=== PATIENT | male | born 1970 | race Two or more races ===

== ENCOUNTER 2017-10-09 18:17 | Inpatient (IN) | payer OTHER ==
[2017-10-09 19:17] VITALS: BMI 26.5
--- NOTE | 2017-10-09 20:38 | HP ---
COWS - Scale Resting Pulse: 1= NE 81-100 Sweatin=Flushed/Facial Moisture Restless Observation: 5= Unable to Sit Still Pupil Size: 1= Pupils >than Normal Bone or Joint Aches: 4=Acute Joint/Muscle Pain Runny Nose/ Eye Tearin= Runny Nose/Eyes GI Upset > 30mins: 2= Nausea/Diarrhea Tremor Observation: 2= Slight Tremor Visible Yawning Observation: 0= None Anxiety or Irritability: 2=Irritable/Anxious Goose Flesh Skin: 0=Smooth Skin COWS Score: 21 CIWA Score - CIWA Score Nausea/Vomitin Muscle Tremors: 4-Moderate,w/Arms Extend Anxiety: 4-Mod. Anxious/Guarded Agitation: 4-Moderately Restless Paroxysmal Sweats: 3 Orientation: 0-Oriented Tacttile Disturbances: 0-None Auditory Disturbances: 1-Very Mild Visual Disturbances: 1-Very Mild Sensitivity Headache: 0-None Present CIWA-Ar Total Score: 20 Admission ROS S - HPI Chief Complaint: C/O WITHDRAWAL SX'S. SEEKING DETOX TXMENT FOR BENZO AND OPIOID DEP Allergies/Adverse Reactions: Allergies Allergy/AdvReac Type Severity Reaction Status Date / Time No Known Allergies Allergy Verified 10/09/17 20:32 History of Present Illness: 47 Y.O. MALE WITH LONG HX/O OPIOID AND ALCOHOL DEPENDENCE HERE FOR DETOX TXMENT. SELF REFERRED. LONGEST CLEAN TIME 5 YEARS RELAPSING 4 YEARS AGO. DENIES ANY LEGALS. STATES LAST DETOX OVER A YEAR AGO. Exam Limitations: No Limitations - Ebola screening Have you traveled outside of the country in the last 21 days: No Have you had contact with anyone from an Ebola affected area: No Have you been sick,other than usual withdrawal symptoms: No Do you have a fever: No - Review of Systems Constitutional: Chills, Loss of Appetite, Malaise, Night Sweats, Changes in sleep EENT: reports: Nose Congestion, Dental Problems ([place]) Respiratory: reports: No Symptoms reported Cardiac: reports: No Symptoms Reported GI: reports: Diarrhea, Nausea, Poor Appetite, Abdominal cramping : reports: No Symptoms Reported Musculoskeletal: reports: Back Pain, Joint Pain, Muscle Pain Integumentary: reports: No Symptoms Reported Neuro: reports: Seizure (R/T DRUGS AND ALCOHOL), Tremors (R/T ALCOHOL WITHDRAWAL ) Endocrine: reports: No Symptoms Reported Hematology: reports: No Symptoms Reported Psychiatric: reports: Anxious, Depressed Other Systems: Reviewed and Negative Patient History - Patient Medical History Hx Anemia: No Hx Asthma: No Hx Chronic Obstructive Pulmonary Disease (COPD): No Hx Cancer: No Hx Cardiac Disorders: No Hx Congestive Heart Failure: No Hx Hypertension: No Hx Hypercholesterolemia: No Hx Pacemaker: No HX Cerebrovascular Accident: No Hx Seizures: Yes (R/T DRUGS AND ALCOHOL. LAST ONE AGE 19) Hx Dementia: No Hx Diabetes: No Hx Gastrointestinal Disorders: No Hx Liver Disease: No Hx Genitourinary Disorders: No Hx Sexually Transmitted Disorders: No Hx Renal Disease (ESRD): No Hx Thyroid Disease: No Hx Human Immunodeficiency Virus (HIV): No Hx Hepatitis C: No Hx Depression: Yes Hx Suicide Attempt: No Hx Bipolar Disorder: No Hx Schizophrenia: No Other Medical History: INSOMNIA, ANXIETY - Patient Surgical History Past Surgical History: No - PPD History Previous Implant?: Yes Documented Results: Negative w/o proof Implanted On Prior [facility] Admission?: No PPD to be Administered?: Yes - Smoking Cessation Smoking history: Current every day smoker Have you smoked in the past 12 months: Yes Aproximately how many cigarettes per day: 10 Cigars Per Day: 0 Hx Chewing Tobacco Use: No Initiated information on smoking cessation: Yes 'Breaking Loose' booklet given: 10/09/17 - Substance & Tx. History Hx Alcohol Use: Yes Hx Substance Use: Yes Substance Use Type: Alcohol, Heroin, Tranquilizers (XANAX) Hx Substance Use Treatment: Yes ([facility]) - Substances Abused HEROIN Route: Injection Frequency: Daily Amount used: 6 BAGS Age of first use: 19 Date of Last Use: 10/09/17 XANAX Route: Oral Frequency: Daily Amount used: 6MG Age of first use: 27 Date of Last Use: 10/09/17 YISEL/BEER Route: Oral Frequency: Daily Amount used: FIFTH/ 2- 6 PACKS Age of first use: 13 Date of Last Use: 10/09/17 Family Disease History - Family Disease History Family History: Denies Admission Physical Exam [facility] - Vital Signs Vital Signs: Vital Signs - 24 hr 10/09/17 19:14 Temperature 98.0 F Pulse Rate 85 Respiratory 18 Rate Blood Pressure 117/77 - Physical General Appearance: Yes: Appropriately Dressed, Mild Distress, Alcohol on Breath , Tremorous, Anxious HEENTM: Yes: EOMI, Pharynx Normal, Nasal Congestion Respiratory: Yes: Chest Non-Tender, Lungs Clear, Normal Breath Sounds, No Respiratory Distress, No Accessory Muscle Use Neck: Yes: No masses,lesions,Nodules, Supple, Trachea in good position Breast: Yes: Breast Exam Deferred Cardiology: Yes: Regular Rhythm, Regular Rate, S1, S2 Abdominal: Yes: Normal Bowel Sounds, Non Tender, Soft Genitourinary: Yes: Within Normal Limits Back: Yes: Normal Inspection Musculoskeletal: Yes: full range of Motion, Gait Steady Extremities: Yes: Normal Capillary Refill, Normal Range of Motion, Non-Tender, Tremors 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, Fully Oriented, Alert, Motor Strength 5/5 Integumentary: Yes: Warm, Track Jerez, Other (FLUSHED TRACK JEREZ TO BOTH ARMS) Lymphatic: Yes: Within Normal Limits - Diagnostic (1) Alcohol dependence with uncomplicated withdrawal Current Visit: Yes Status: Chronic (2) Opioid dependence with withdrawal Current Visit: Yes Status: Chronic (3) Sedative, hypnotic or anxiolytic dependence with withdrawal, unspecified Current Visit: Yes Status: Chronic (4) Nicotine dependence Current Visit: Yes Status: Chronic Qualifiers: Nicotine product type: cigarettes Substance use status: uncomplicated Qualified Code(s): F17.210 - Nicotine dependence, cigarettes, uncomplicated (5) Alcohol related seizure Current Visit: Yes Status: Chronic Cleared for Admission [facility] - Detox or Rehab [facility] Level of Care: Medically Managed Detox Regimen/Protocol: Methadone/Valium S Breath Alcohol Content Breath Alcohol Content: 0 Urine Drug Screen - Results Drug Screen Negative: No Urine Drug Screen Results: OPI-Opiates, BZO-Benzodiazepines, OXY-Oxycodone
[2017-10-09] MEDS ORDERED: MAG HYDROX/AL HYDROX/SIMETH 30 ML UNIT-DOSE CUP PO PRN (20:49)
[2017-10-09] MEDS ORDERED: diazePAM 5 MG TABLET PO ONE (20:49)
[2017-10-09] MEDS ORDERED: ACETAMINOPHEN 325 MG TABLET (FP) PO PRN (20:49)
[2017-10-09] MEDS ORDERED: LOPERAMIDE HCL 2 MG CAPSULE PO PRN (20:49)
[2017-10-09] MEDS ORDERED: diazePAM 5 MG TABLET PO PRN (20:49)
[2017-10-09] MEDS ORDERED: P-EPHED 60MG/TRIPROLIDI 2.5MG TABLET PO PRN (20:49)
[2017-10-09] MEDS ORDERED: MENTHOL/PHENOL 1 EACH UD MM PRN (20:49)
[2017-10-09] MEDS ORDERED: IBUPROFEN 400 MG TABLET (FP) PO PRN (20:49)
[2017-10-09] MEDS ORDERED: NICOTINE POLACRILEX 2 MG GUM BC PRN (20:49)
[2017-10-09] MEDS ORDERED: guaiFENesin/D-METHORPHAN HB 10 ML UNIT-DOSE CUPS PO PRN (20:49)
[2017-10-09] MEDS ORDERED: MAGNESIUM HYDROX 2400MG/30ML ORAL SUSPENSION 30 ML CUP PO PRN (20:49)
[2017-10-09] MEDS ORDERED: MAGNESIUM CITRATE 300 ML BOTTLE PO PRN (20:49)
[2017-10-09] MEDS ORDERED: METHADONE HCL 10 MG TABLET (FOR DETOX USE ONLY) PO ONE ×2 (20:49→23:00)
[2017-10-09] MEDS ORDERED: diazePAM 5 MG TABLET PO SCH (22:00)
[2017-10-10] MEDS ORDERED: METHADONE HCL 10 MG TABLET (FOR DETOX USE ONLY) PO ONE ×3 (00:44→23:00)
[2017-10-10] MEDS ORDERED: diazePAM 5 MG TABLET PO ONE (00:44)
[2017-10-10] MEDS: THIAMINE HCL 100 MG TABLET (FP) PO SCH ×2 (01:18→22:18)
[2017-10-10] MEDS: diazePAM 5 MG TABLET PO SCH ×3 (05:58→22:19)
[2017-10-10] MEDS ORDERED: METHADONE HCL 10 MG TABLET (FOR DETOX USE ONLY) PO SCH (10:00)
--- NOTE | 2017-10-10 10:03 | CONSULT ---
[facility] Psychiatric Consult - Data Date of interview: 10/10/17 Admission source: [facility] Identifying data: Pt. is a 47 year old male, single and unemployed with 3 children. This is patient's first admission to [facility]. Pt. admitted to detox for heroin, cocaine and alcohol dependence. Substance Abuse History: Cocaine- begun using at 19 years of age. Amount used- $ 20 dollars/month. Alcohol- Started drinking alcohol at 9-10 years of age. Usage - 6 pack of heineken and 1/5 donna daily. Cigaretes- half pack per day since 17 years of age. Marijuaua- Beung using marijuana at 16 year of age. Usage: couple of bags daily. Medical History: Pt. denies. As per chart patient had a seizure at 19 years of age. (seizure r/t drugs and alcohol). Psychiatric History: Pt. reports a history of depression. Reports multiple psychiatric hospitalizations from 1996- 2014, all for depression. Pt. unable to state which hospital/hospitals he was admitted too. Pt. reports taking trazodone and celexa since 2010 but has not taken any psychotrophic medications in approximately one year. Pt. denies h/o suicide attempts. Physical/Sexual Abuse/Trauma History: Pt. denies. Mental Status Exam - Mental Status Exam Alert and Oriented to: Time, Place, Person Cognitive Function: Fair Patient Appearance: Well Groomed Mood: Euthymic Affect: Appropriate, Mood Congruent Patient Behavior: Appropriate, Cooperative Speech Pattern: Clear, Appropriate Voice Loudness: Normal Thought Process: Goal Oriented Thought Disorder: Not Present Hallucinations: Denies Suicidal Ideation: Denies Homicidal Ideation: Denies Insight/Judgement: Fair Sleep: Poorly (Will restart patient on trazodone 50mg qhs) Appetite: Fair Muscle strength/Tone: Normal Gait/Station: Normal Psychiatric Findings - Problem List ([place] 1, 2,3) (1) Substance induced mood disorder Current Visit: Yes Status: Acute (2) Alcohol dependence with uncomplicated withdrawal Current Visit: Yes Status: Chronic (3) Nicotine dependence Current Visit: Yes Status: Chronic Qualifiers: Nicotine product type: cigarettes Substance use status: uncomplicated Qualified Code(s): F17.210 - Nicotine dependence, cigarettes, uncomplicated (4) Opioid dependence with withdrawal Current Visit: Yes Status: Chronic (5) Sedative, hypnotic or anxiolytic dependence with withdrawal, unspecified Current Visit: Yes Status: Chronic - Initial Treatment Plan Initial Treatment Plan: Psychoeducation provided. Detoxifiation in progress. Trazodone 50mg qhs ordered for insomnia. Benefits/side effects discusess with patient. Verbal consent given. Pt. agreeable with plan. Will continue to monitor patient.
[2017-10-10 10:12] LABS: MCH 31.8 pg (25.7-33.7); MCHC 33.6 g/dl (32.0-35.9); MEAN CELL VOLUME 94.8 fl (80-96); MEAN PLT VOLUME 9.9 fl (7.5-11.1); PLATELET COUNT 171 K/MM3 (134-434); RDW 12.9 % (11.9-15.9); WHITE BLOOD COUNT 6.2 K/mm3 (4.0-10.0)
[2017-10-10 10:20] LABS: ALBUMIN 3.3 g/dl (3.4-5.0); ALK PHOS 77 U/L (45-117); ANION GAP 7 (8-16); BILIRUBIN,TOTAL 0.3 mg/dL (0.2-1.0); CALCIUM 8.8 mg/dL (8.5-10.1); CO2 28 mmol/L (21-32); CREATININE 0.8 mg/dL (0.7-1.3); GLUCOSE,RANDOM 80 mg/dL (74-106); SGOT/AST 22 U/L (15-37); SGPT/ALT 40 U/L (12-78); TOT PROT 6.3 g/dl (6.4-8.2)
[2017-10-10] MEDS: PRENATAL VITAMINS W/ FOLIC ACID TABLET (FP) PO SCH (10:32)
[2017-10-10] MEDS: NICOTINE 14 MG/24 HOURS TOPICAL PATCH TD SCH (10:33)
[2017-10-10] MEDS: diazePAM 5 MG TABLET PO PRN ×2 (10:34→17:22)
[2017-10-10 11:10] LABS: HIV 1 & 2 AB NEGATIVE; HIV 1 AGp24 NEGATIVE
--- NOTE | 2017-10-10 11:43 | EKG ---
Test Reason : Blood Pressure : / mmHG Vent. Rate : 065 BPM Atrial Rate : 065 BPM P-R Int : 112 ms QRS Dur : 092 ms QT Int : 404 ms P-R-T Axes : 045 065 051 degrees QTc Int : 420 ms NORMAL SINUS RHYTHM NORMAL ECG NO PREVIOUS ECGS AVAILABLE Confirmed by BRENNA HERRERA MD ([id number]) on 10/10/2017 11:42:59 AM Referred By: Confirmed By:BRENNA HERRERA MD
--- NOTE | 2017-10-10 19:19 | PN ---
[facility] CIWA - CIWA Score Nausea/Vomitin-No Nausea/No Vomiting Muscle Tremors: 3 Anxiety: 4-Mod. Anxious/Guarded Agitation: 3 Paroxysmal Sweats: 3 Orientation: 0-Oriented Tacttile Disturbances: 2-Mild Itch/Numbness/Burn Auditory Disturbances: 2-Mild Harshness/Frighten Visual Disturbances: 0-None Headache: 0-None Present CIWA-Ar Total Score: 17 S COWS - Scale Resting Pulse: 0= MS 80 or Below Sweatin= Chills/Flushing Restless Observation: 1= Difficult to Sit Still Pupil Size: 0= Normal to Room Light Bone or Joint Aches: 2= Severe Diffuse Aches Runny Nose/ Eye Tearin= Nasal Congestion GI Upset > 30mins: 0= None Tremor Observation of Outstretched Hands: 0= None Yawning Observation: 2= >3x During Session Anxiety or Irritability: 2=Irritable/Anxious Goose Flesh Skin: 3=Piloerection COWS Score: 12 S Progress Note (SOAP) Subjective: Sweating, Anxious, Interrupted Sleep, Tremors, Fatigue. Objective: PT. A & O X 3, OBSERVED AMBULATING ON UNIT. NO ACUTE DISTRESS. 10/10/17 19:16 Vital Signs Temperature 97.5 F L 10/10/17 17:55 Pulse Rate 70 10/10/17 17:55 Respiratory Rate 18 10/10/17 17:55 Blood Pressure 101/71 10/10/17 17:55 O2 Sat by Pulse Oximetry (%) Laboratory Tests 10/10/17 10/10/17 10/10/17 07:00 07:00 07:00 WBC 6.2 RBC 4.62 Hgb 14.7 Hct 43.8 MCV 94.8 MCH 31.8 MCHC 33.6 RDW 12.9 Plt Count 171 MPV 9.9 Sodium 141 Potassium 3.5 Chloride 106 Carbon Dioxide 28 Anion Gap 7 L BUN 14 Creatinine 0.8 Creat Clearance w eGFR > 60 Random Glucose 80 Calcium 8.8 Total Bilirubin 0.3 AST 22 ALT 40 Alkaline Phosphatase 77 Total Protein 6.3 L Albumin 3.3 L RPR Titer Nonreactive HIV 1&2 Antibody Screen HIV P24 Antigen 10/10/17 09:00 WBC RBC Hgb Hct MCV MCH MCHC RDW Plt Count MPV Sodium Potassium Chloride Carbon Dioxide Anion Gap BUN Creatinine Creat Clearance w eGFR Random Glucose Calcium Total Bilirubin AST ALT Alkaline Phosphatase Total Protein Albumin RPR Titer HIV 1&2 Antibody Screen Negative HIV P24 Antigen Negative LABS NOTED. HCV AB AND UA RESULTS PENDING. 10/10/17 19:17 Assessment: 10/10/17 19:17 WITHDRAWAL SYMPTOMS. Plan: CONTINUE DETOX. AT PATIENT'S REQUEST, METHADONE DETOX REGIMEN MODIFIED SO THAT MODIFIED SO THAT PATIENT MAY BE DISCHARGED ON 10/14/2017.
[2017-10-10] MEDS: traZODone HCL 50 MG TABLET (FP) PO SCH (22:18)
[2017-10-11] MEDS: diazePAM 5 MG TABLET PO SCH ×3 (05:27→22:32)
[2017-10-11] MEDS ORDERED: METHADONE HCL 5 MG TABLET (FOR DETOX USE ONLY) PO SCH (10:00)
[2017-10-11] MEDS ORDERED: diazePAM 5 MG TABLET PO SCH (10:00)
[2017-10-11] MEDS ORDERED: METHADONE HCL 10 MG TABLET (FOR DETOX USE ONLY) PO SCH (10:00)
[2017-10-11] MEDS: PRENATAL VITAMINS W/ FOLIC ACID TABLET (FP) PO SCH (10:45)
[2017-10-11] MEDS: diazePAM 5 MG TABLET PO PRN ×2 (10:46→17:37)
[2017-10-11] MEDS: NICOTINE 14 MG/24 HOURS TOPICAL PATCH TD SCH (10:46)
--- NOTE | 2017-10-11 15:54 | PN ---
[facility] CIWA - CIWA Score Nausea/Vomitin-No Nausea/No Vomiting Muscle Tremors: 3 Anxiety: 3 Agitation: 3 Paroxysmal Sweats: 3 Orientation: 0-Oriented Tacttile Disturbances: 2-Mild Itch/Numbness/Burn Auditory Disturbances: 0-None Visual Disturbances: 2-Mild Sensitivity Headache: 0-None Present CIWA-Ar Total Score: 16 [facility]HS COWS - Scale Resting Pulse: 0= MD 80 or Below Sweatin= Chills/Flushing Restless Observation: 1= Difficult to Sit Still Pupil Size: 0= Normal to Room Light Bone or Joint Aches: 2= Severe Diffuse Aches Runny Nose/ Eye Tearin= Nasal Congestion GI Upset > 30mins: 1= Stomach Cramp Tremor Observation of Outstretched Hands: 2= Slight Tremor Visible Yawning Observation: 1= 1-2x During Session Anxiety or Irritability: 2=Irritable/Anxious Goose Flesh Skin: 3=Piloerection COWS Score: 14 S Progress Note (SOAP) Subjective: Sweating, Tremors, Anxious, Body Aches. Objective: PT. A & O X 3, OBSERVED AMBULATING ON UNIT. NO ACUTE DISTRESS. 10/11/17 15:53 Vital Signs Temperature 98 F 10/11/17 13:01 Pulse Rate 78 10/11/17 13:01 Respiratory Rate 18 10/11/17 13:01 Blood Pressure 121/74 10/11/17 13:01 O2 Sat by Pulse Oximetry (%) Laboratory Tests 10/09/17 10/10/17 10/10/17 07:00 07:00 07:00 WBC 6.2 RBC 4.62 Hgb 14.7 Hct 43.8 MCV 94.8 MCH 31.8 MCHC 33.6 RDW 12.9 Plt Count 171 MPV 9.9 Sodium 141 Potassium 3.5 Chloride 106 Carbon Dioxide 28 Anion Gap 7 L BUN 14 Creatinine 0.8 Creat Clearance w eGFR > 60 Random Glucose 80 Calcium 8.8 Total Bilirubin 0.3 AST 22 ALT 40 Alkaline Phosphatase 77 Total Protein 6.3 L Albumin 3.3 L RPR Titer Hepatitis C Antibody >11.0 H HIV 1&2 Antibody Screen HIV P24 Antigen 10/10/17 10/10/17 07:00 09:00 WBC RBC Hgb Hct MCV MCH MCHC RDW Plt Count MPV Sodium Potassium Chloride Carbon Dioxide Anion Gap BUN Creatinine Creat Clearance w eGFR Random Glucose Calcium Total Bilirubin AST ALT Alkaline Phosphatase Total Protein Albumin RPR Titer Nonreactive Hepatitis C Antibody HIV 1&2 Antibody Screen Negative HIV P24 Antigen Negative LABS NOTED. Assessment: 10/11/17 15:54 WITHDRAWAL SYMPTOMS. Plan: CONTINUE DETOX. PRN FLEXERIL FOR BODY ACHES / MUSCLE SPASMS. INCREASE DAILY PO FLUID INTAKE.
[2017-10-11] MEDS: THIAMINE HCL 100 MG TABLET (FP) PO SCH (22:31)
[2017-10-11] MEDS: CYCLOBENZAPRINE HCL 10 MG TABLET (FP) PO PRN (22:32)
[2017-10-11] MEDS: traZODone HCL 50 MG TABLET (FP) PO SCH (22:32)
[2017-10-12] MEDS: diazePAM 5 MG TABLET PO PRN ×2 (07:37→17:27)
[2017-10-12] MEDS: CYCLOBENZAPRINE HCL 10 MG TABLET (FP) PO PRN ×2 (07:37→22:36)
[2017-10-12] MEDS ORDERED: METHADONE HCL 5 MG TABLET (FOR DETOX USE ONLY) PO SCH (10:00)
[2017-10-12] MEDS: PRENATAL VITAMINS W/ FOLIC ACID TABLET (FP) PO SCH (10:37)
[2017-10-12] MEDS: diazePAM 5 MG TABLET PO SCH ×2 (10:37→22:33)
[2017-10-12] MEDS: NICOTINE 14 MG/24 HOURS TOPICAL PATCH TD SCH (10:37)
[2017-10-12] MEDS: HYDROCORTISONE 0.5% TOPICAL OINTMENT TUBE TP SCH ×2 (13:36→22:37)
[2017-10-12] MEDS: BACITRACIN 0.9 GM PACKET TP SCH (13:36)
--- NOTE | 2017-10-12 18:02 | PN ---
S Progress Note (SOAP) Subjective: Sweating, Anxious, Interrupted Sleep. Objective: PT. A & O X 3, OBSERVED AMBULATING ON UNIT. NO ACUTE DISTRESS. 10/12/17 18:00 Vital Signs Temperature 97.3 F L 10/12/17 17:30 Pulse Rate 66 10/12/17 17:30 Respiratory Rate 18 10/12/17 17:30 Blood Pressure 108/58 10/12/17 17:30 O2 Sat by Pulse Oximetry (%) Laboratory Tests 10/09/17 10/10/17 10/10/17 07:00 07:00 07:00 WBC 6.2 RBC 4.62 Hgb 14.7 Hct 43.8 MCV 94.8 MCH 31.8 MCHC 33.6 RDW 12.9 Plt Count 171 MPV 9.9 Sodium 141 Potassium 3.5 Chloride 106 Carbon Dioxide 28 Anion Gap 7 L BUN 14 Creatinine 0.8 Creat Clearance w eGFR > 60 Random Glucose 80 Calcium 8.8 Total Bilirubin 0.3 AST 22 ALT 40 Alkaline Phosphatase 77 Total Protein 6.3 L Albumin 3.3 L RPR Titer Hepatitis C Antibody >11.0 H HIV 1&2 Antibody Screen HIV P24 Antigen 10/10/17 10/10/17 07:00 09:00 WBC RBC Hgb Hct MCV MCH MCHC RDW Plt Count MPV Sodium Potassium Chloride Carbon Dioxide Anion Gap BUN Creatinine Creat Clearance w eGFR Random Glucose Calcium Total Bilirubin AST ALT Alkaline Phosphatase Total Protein Albumin RPR Titer Nonreactive Hepatitis C Antibody HIV 1&2 Antibody Screen Negative HIV P24 Antigen Negative LABS NOTED. Assessment: 10/12/17 18:00 WITHDRAWAL SYMPTOMS. Plan: CONTINUE DETOX. INCREASE DAILY PO FLUID INTAKE. PATIENT REPORTS THAT HE COMPLETED A FULL COURSE OF TREATMENT FOR HEPATITIS C IN 2011.
[2017-10-12] MEDS: THIAMINE HCL 100 MG TABLET (FP) PO SCH (22:33)
[2017-10-12] MEDS: traZODone HCL 50 MG TABLET (FP) PO SCH (22:33)
[2017-10-13] MEDS: CYCLOBENZAPRINE HCL 10 MG TABLET (FP) PO PRN (06:00)
[2017-10-13] MEDS ORDERED: diazePAM 5 MG TABLET PO SCH (10:00)
[2017-10-13] MEDS ORDERED: METHADONE HCL 10 MG TABLET (FOR DETOX USE ONLY) PO SCH ×2 (10:00)
[2017-10-13 10:16] LABS: URINE APPEARANCE CLEAR; URINE BILIRUBIN NEGATIVE (NEGATIVE); URINE BLOOD NEGATIVE (NEGATIVE); URINE COLOR STRAW; URINE GLUCOSE (UA) NEGATIVE (NEGATIVE); URINE KETONE NEGATIVE (NEGATIVE); URINE LEUK ESTERASE NEGATIVE (NEGATIVE); URINE NITRITE NEGATIVE (NEGATIVE); URINE PROTEIN NEGATIVE (NEGATIVE); URINE UROBILINOGEN NEGATIVE mg/dL (0.2-1.0)
[2017-10-13] MEDS: HYDROCORTISONE 0.5% TOPICAL OINTMENT TUBE TP SCH ×2 (10:40→22:42)
[2017-10-13] MEDS: BACITRACIN 0.9 GM PACKET TP SCH (10:40)
[2017-10-13] MEDS: diazePAM 5 MG TABLET PO SCH ×2 (10:40→22:42)
[2017-10-13] MEDS: PRENATAL VITAMINS W/ FOLIC ACID TABLET (FP) PO SCH (10:40)
[2017-10-13] MEDS: NICOTINE 14 MG/24 HOURS TOPICAL PATCH TD SCH (10:40)
[2017-10-13] MEDS ORDERED: hydrOXYzine HCL 25 MG TABLET (FP) PO PRN (11:21)
[2017-10-13 14:06] LABS: URINE LEUK ESTERASE NEGATIVE (NEGATIVE)
--- NOTE | 2017-10-13 17:05 | PN ---
[facility] Progress Note (SOAP) Subjective: Anxious, interrupted sleep Objective: 10/13/17 17:04 Last Vital Signs Temp Pulse Resp BP Pulse Ox 96.5 F L 77 18 107/64 10/13/17 14:30 10/13/17 14:30 10/13/17 14:30 10/13/17 14:30 Laboratory Tests 10/09/17 10/10/17 10/10/17 07:00 07:00 07:00 WBC 6.2 RBC 4.62 Hgb 14.7 Hct 43.8 MCV 94.8 MCH 31.8 MCHC 33.6 RDW 12.9 Plt Count 171 MPV 9.9 Sodium 141 Potassium 3.5 Chloride 106 Carbon Dioxide 28 Anion Gap 7 L BUN 14 Creatinine 0.8 Creat Clearance w eGFR > 60 Random Glucose 80 Calcium 8.8 Total Bilirubin 0.3 AST 22 ALT 40 Alkaline Phosphatase 77 Total Protein 6.3 L Albumin 3.3 L Urine Color Urine Appearance Urine pH Ur Specific [place] Urine Protein Urine Glucose (UA) Urine Ketones Urine Blood Urine Nitrite Urine Bilirubin Urine Urobilinogen Ur Leukocyte Esterase RPR Titer Hepatitis C Antibody >11.0 H HIV 1&2 Antibody Screen HIV P24 Antigen 10/10/17 10/10/17 10/13/17 07:00 09:00 08:00 WBC RBC Hgb Hct MCV MCH MCHC RDW Plt Count MPV Sodium Potassium Chloride Carbon Dioxide Anion Gap BUN Creatinine Creat Clearance w eGFR Random Glucose Calcium Total Bilirubin AST ALT Alkaline Phosphatase Total Protein Albumin Urine Color Straw Urine Appearance Clear Urine pH 7.0 Ur Specific [place] 1.010 Urine Protein Negative Urine Glucose (UA) Negative Urine Ketones Negative Urine Blood Negative Urine Nitrite Negative Urine Bilirubin Negative Urine Urobilinogen Negative Ur Leukocyte Esterase Negative RPR Titer Nonreactive Hepatitis C Antibody HIV 1&2 Antibody Screen Negative HIV P24 Antigen Negative Labs noted Assessment: 10/13/17 17:05 Withdrawal symptoms Plan: Continue detox
[2017-10-13] MEDS: THIAMINE HCL 100 MG TABLET (FP) PO SCH (22:42)
[2017-10-13] MEDS: traZODone HCL 50 MG TABLET (FP) PO SCH (22:43)
[2017-10-14] MEDS: CYCLOBENZAPRINE HCL 10 MG TABLET (FP) PO PRN (05:57)
[2017-10-14] MEDS ORDERED: METHADONE HCL 5 MG TABLET (FOR DETOX USE ONLY) PO SCH ×2 (06:00)
[2017-10-14 09:39] VITALS: BP 103/69; PULSE 76; TEMP 97.3
[2017-10-14] MEDS ORDERED: diazePAM 5 MG TABLET PO SCH (10:00)
[2017-10-14] MEDS ORDERED: METHADONE HCL 10 MG TABLET (FOR DETOX USE ONLY) PO SCH (10:00)
[2017-10-15] MEDS ORDERED: METHADONE HCL 5 MG TABLET (FOR DETOX USE ONLY) PO SCH (06:00)
== END 2017-10-14 11:15 | disposition home or self-care (01) | DRG 773 ==
LOC: YASAS 18:17 → Y3N 22:43
PROVIDERS: ADMIT Internal Medicine; ATTEND Internal Medicine
PROC: HZ2ZZZZ Detoxification Services for Substance Abuse Treatment (ICD-10-PCS; principal; 2017-10-09)
DX: F11.23 Opioid dependence with withdrawal (principal); F13.230 Sedative, hypnotic or anxiolytic dependence with withdrawal, uncomplicated; F10.230 Alcohol dependence with withdrawal, uncomplicated; F17.210 Nicotine dependence, cigarettes, uncomplicated; F19.24 Other psychoactive substance dependence with psychoactive substance-induced mood disorder; F32.9 Major depressive disorder, single episode, unspecified; G47.00 Insomnia, unspecified; G40.509 Epileptic seizures related to external causes, not intractable, without status epilepticus
CPT/HCPCS: 36415; 80053; 81003; 85027; 86593; 86803; 87389; 87522; 93005; 93010

== ENCOUNTER 2018-06-27 15:39 | Inpatient (IN) | payer OTHER ==
[2018-06-27 16:55] VITALS: BMI 25.1
--- NOTE | 2018-06-27 17:59 | HP ---
COWS - Scale Resting Pulse: 0= [place] 80 or Below Sweatin=Flushed/Facial Moisture Restless Observation: 0= Sits Still Pupil Size: 2= Moderately Dilated Bone or Joint Aches: 2= Severe Diffuse Aches Runny Nose/ Eye Tearin= Runny Nose/Eyes GI Upset > 30mins: 2= Nausea/Diarrhea Tremor Observation: 2= Slight Tremor Visible Yawning Observation: 1= 1-2x During Session Anxiety or Irritability: 1=Feels Anxious/Irritable Goose Flesh Skin: 0=Smooth Skin COWS Score: 14 CIWA Score - CIWA Score Nausea/Vomitin Muscle Tremors: 2 Anxiety: 2 Agitation: 0-Normal Activity Paroxysmal Sweats: 2 Orientation: 1-Uncertain about Date Tacttile Disturbances: 1-Very Mild Itch/Numbness Auditory Disturbances: 0-None Visual Disturbances: 0-None Headache: 2-Mild CIWA-Ar Total Score: 12 Admission [facility] Chief Complaint: Patient presents with ETOH/Heroin/Xanax withdrawal symptoms and cocaine dependence. Allergies/Adverse Reactions: Allergies Allergy/AdvReac Type Severity Reaction Status Date / Time No Known Allergies Allergy Verified 06/27/18 17:16 History of Present Illness: Patient is a 47 year old male with Heroin/ETOH/Xanax withdrawal symptoms and cocaine and marijuana dependence. Pateint started injecting heroin/Xanax/Cocaine /Marijuana at age 19 and ETOH and age 15. Patient injects up to 15 bags of heroin daily and drinks up to 2 pints of liquor daily with 2 40 ounce beers. Patient also buys non-prescribed xanax and takes up to 4-6 mg daily. Patient injected heroin and took xanax this morning. Last time he took cocaine and marijuana was 2 days ago. Last ETOH use was last night. Patient denies hx of seizures. +overdose approximately 1 year ago. Patient has PMH of depression. Denies SI/HI and suicide attempts. 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 Last time he received prescription was 06/04/18- reference number [id number] Dr. Blake- 8 #90 films. Exam Limitations: No Limitations - Ebola screening Have you traveled outside of the country in the last 21 days: No (N) Have you had contact with anyone from an Ebola affected area: No Have you been sick,other than usual withdrawal symptoms: No Do you have a fever: No - Review of Systems Constitutional: Chills, Night Sweats, Changes in sleep, Unintentional Wgt. Loss EENT: reports: Tearing, Nose Congestion. denies: Blurred Vision, Recent change in vision Respiratory: reports: No Symptoms reported. denies: Cough, Wheezing Cardiac: reports: No Symptoms Reported. denies: Chest Pain, Palpitations GI: reports: Diarrhea, Nausea, Poor Appetite, Poor Fluid Intake, Abdominal cramping. denies: Vomiting : reports: No Symptoms Reported. denies: Burning, Dysuria, Pain Musculoskeletal: reports: Back Pain, Joint Pain, Muscle Pain Integumentary: reports: Sweating. denies: Rash Neuro: reports: Headache, Numbness, Tingling, Tremors Endocrine: reports: Unexplained Weight Loss Hematology: reports: No Symptoms Reported. denies: Anemia, Easy Bleeding Psychiatric: reports: Anxious, Depressed Patient History - Patient Medical History Hx Anemia: No Hx Asthma: No Hx Chronic Obstructive Pulmonary Disease (COPD): No Hx Cancer: No Hx Cardiac Disorders: No Hx Congestive Heart Failure: No Hx Hypertension: No Hx Hypercholesterolemia: No Hx Pacemaker: No HX Cerebrovascular Accident: No Hx Seizures: Yes (R/T DRUGS AND ALCOHOL. LAST ONE AGE 19) Hx Dementia: No Hx Diabetes: No Hx Gastrointestinal Disorders: No Hx Liver Disease: No Hx Genitourinary Disorders: No Hx Sexually Transmitted Disorders: No Hx Renal Disease (ESRD): No Hx Thyroid Disease: No Hx Human Immunodeficiency Virus (HIV): No Hx Hepatitis C: No Hx Depression: Yes Hx Suicide Attempt: No Hx Bipolar Disorder: No Hx Schizophrenia: No - Patient Surgical History Past Surgical History: No Hx Neurologic Surgery: No Hx Cataract Extraction: No Hx Cardiac Surgery: No Hx Lung Surgery: No Hx Breast Surgery: No Hx Breast Biopsy: No Hx Abdominal Surgery: No Hx Appendectomy: No Hx Cholecystectomy: No Hx Genitourinary Surgery: No Hx Orthopedic Surgery: No Anesthesia Reaction: No - PPD History Previous Implant?: Yes Documented Results: Negative w/proof Date: 10/12/17 PPD to be Administered?: No - Smoking Cessation Smoking history: Current every day smoker Have you smoked in the past 12 months: Yes Aproximately how many cigarettes per day: 10 Cigars Per Day: 0 Hx Chewing Tobacco Use: No Initiated information on smoking cessation: Yes 'Breaking Loose' booklet given: 06/27/18 - Substance & Tx. History Hx Alcohol Use: Yes Hx Substance Use: Yes Substance Use Type: Alcohol, Cocaine, Heroin, Marijuana, Tranquilizers Hx Substance Use Treatment: Yes ([facility] 4 months ago) - Substances Abused Alcohol Route: Oral Frequency: Daily Amount used: LIQUOR- 3 PINTS, BEER- 3 (40oz) Age of first use: 15 Date of Last Use: 06/26/18 Heroin Route: Injection Frequency: Daily Amount used: 15 bags Age of first use: 19 Date of Last Use: 06/27/18 Alprazolam (Xanax) Route: Oral Frequency: Daily Amount used: 4mg Age of first use: 19 Date of Last Use: 06/27/18 Family Disease History - Family Disease History Family History: Denies Admission Physical Exam [facility] - Vital Signs Vital Signs: Vital Signs - 24 hr 06/27/18 16:52 Temperature 98.5 F Pulse Rate 63 Respiratory 18 Rate Blood Pressure 117/69 - Physical General Appearance: Yes: Appropriately Dressed, Tremorous, Sweating, Anxious. No: Disheveled, Alcohol on Breath HEENTM: Yes: EOMI, Hearing grossly Normal, Normocephalic, Normal Voice, ISHAAN, Pharynx Normal, Nasal Congestion Respiratory: Yes: Chest Non-Tender, Lungs Clear, Normal Breath Sounds, No Respiratory Distress, No Accessory Muscle Use Neck: Yes: No masses,lesions,Nodules, Supple Breast: Yes: Breast Exam Deferred Cardiology: Yes: Regular Rhythm, Regular Rate, S1, S2 Abdominal: Yes: Normal Bowel Sounds, Non Tender, Soft Genitourinary: Yes: Within Normal Limits. 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, Fully Oriented, Alert, Motor Strength 5/5, Depressed Affect Integumentary: Yes: Normal Color, Warm, Moist, Track Simons Lymphatic: Yes: Within Normal Limits - Diagnostic (1) Depressed affect Current Visit: Yes Status: Suspected (2) Marijuana dependence Current Visit: Yes Status: Chronic (3) Alcohol dependence with uncomplicated withdrawal Current Visit: Yes Status: Acute (4) Opioid dependence with withdrawal Current Visit: No Status: Acute (5) Sedative, hypnotic or anxiolytic dependence with withdrawal, unspecified Current Visit: No Status: Acute (6) Nicotine dependence Current Visit: No Status: Chronic Qualifiers: Nicotine product type: cigarettes Substance use status: uncomplicated Qualified Code(s): F17.210 - Nicotine dependence, cigarettes, uncomplicated Cleared for Admission S - Detox or Rehab [facility] Level of Care: Medically Managed Detox Regimen/Protocol: Methadone/Valium S Breath Alcohol Content Breath Alcohol Content: 0 Urine Drug Screen - Results Drug Screen Negative: No Urine Drug Screen Results: THC-Marijuana, FRANCIS-Cocaine, OPI-Opiates, BZO- Benzodiazepines
[2018-06-27] MEDS ORDERED: MAGNESIUM CITRATE 300 ML BOTTLE PO PRN (18:15)
[2018-06-27] MEDS ORDERED: LOPERAMIDE HCL 2 MG CAPSULE PO PRN (18:15)
[2018-06-27] MEDS ORDERED: guaiFENesin/D-METHORPHAN HB 10 ML UNIT-DOSE CUPS PO PRN (18:15)
[2018-06-27] MEDS ORDERED: P-EPHED 60MG/TRIPROLIDI 2.5MG TABLET PO PRN (18:15)
[2018-06-27] MEDS ORDERED: ACETAMINOPHEN 325 MG TABLET (FP) PO PRN (18:15)
[2018-06-27] MEDS ORDERED: MAGNESIUM HYDROX 2400MG/30ML ORAL SUSPENSION 30 ML CUP PO PRN (18:15)
[2018-06-27] MEDS ORDERED: MENTHOL/PHENOL 1 EACH UD MM PRN (18:15)
[2018-06-27] MEDS ORDERED: IBUPROFEN 400 MG TABLET (FP) PO PRN (18:15)
[2018-06-27] MEDS ORDERED: hydrOXYzine PAMOATE 50 MG CAPSULE (FP) PO PRN (18:15)
[2018-06-27] MEDS ORDERED: MAG HYDROX/AL HYDROX/SIMETH 30 ML UNIT-DOSE CUP PO PRN (18:15)
[2018-06-27] MEDS ORDERED: NICOTINE POLACRILEX 2 MG GUM BC PRN (18:15)
[2018-06-27] MEDS ORDERED: METHADONE HCL 10 MG TABLET (FOR DETOX USE ONLY) PO ONE ×2 (18:45→23:00)
[2018-06-27] MEDS ORDERED: diazePAM 5 MG TABLET PO ONE (18:45)
[2018-06-27] MEDS ORDERED: MELATONIN 5 MG TABLETS PO PRN (22:00)
[2018-06-27] MEDS: diazePAM 5 MG TABLET PO SCH (22:17)
[2018-06-27] MEDS: THIAMINE HCL 100 MG TABLET (FP) PO SCH (22:17)
[2018-06-28 01:24] LABS: URINE APPEARANCE CLEAR; URINE BILIRUBIN NEGATIVE (<2.0 mg/dL); URINE COLOR YELLOW; URINE GLUCOSE (UA) NEGATIVE (NEGATIVE); URINE KETONE NEGATIVE (NEGATIVE); URINE LEUK ESTERASE NEGATIVE (NEGATIVE); URINE NITRITE NEGATIVE (NEGATIVE); URINE PROTEIN NEGATIVE (NEGATIVE); URINE UROBILINOGEN NEGATIVE mg/dL (0.2-1.0)
[2018-06-28] MEDS: diazePAM 5 MG TABLET PO SCH ×3 (06:09→22:31)
[2018-06-28] MEDS: PRENATAL VITAMINS W/ FOLIC ACID TABLET (FP) PO SCH (09:57)
[2018-06-28] MEDS: NICOTINE 21 MG/24 HOURS TOPICAL PATCH TD SCH (09:57)
[2018-06-28] MEDS ORDERED: METHADONE HCL 10 MG TABLET (FOR DETOX USE ONLY) PO SCH (10:00)
[2018-06-28] MEDS: diazePAM 5 MG TABLET PO PRN ×3 (10:01→19:28)
[2018-06-28 10:03] LABS: HEMATOCRIT 42.5 % (35.4-49); HEMOGLOBIN 13.9 GM/dL (11.7-16.9); MCHC 32.8 g/dl (32.0-35.9); MEAN CELL VOLUME 94.8 fl (80-96); PLATELET COUNT 209 K/MM3 (134-434); RBC 4.49 M/mm3 (4.00-5.60); RDW 13.1 % (11.9-15.9); WHITE BLOOD COUNT 7.4 K/mm3 (4.0-10.0)
[2018-06-28 10:18] LABS: ALBUMIN 3.1 g/dl (3.4-5.0); CALCIUM 8.5 mg/dL (8.5-10.1); CHLORIDE 108 mmol/L (98-107); POTASSIUM 3.5 mmol/L (3.5-5.1); SGPT/ALT 30 U/L (12-78); SODIUM 143 mmol/L (136-145)
[2018-06-28 10:21] LABS: ALK PHOS 74 U/L (45-117); ANION GAP 9 MMOL/L (8-16); BILIRUBIN,TOTAL 0.4 mg/dL (0.2-1.0); BLOOD UREA NITROGEN 12 mg/dL (7-18); CO2 26 mmol/L (21-32); CREATININE 0.8 mg/dL (0.7-1.3); GLUCOSE,RANDOM 138 mg/dL (74-106); SGOT/AST 22 U/L (15-37); TOT PROT 6.1 g/dl (6.4-8.2)
--- NOTE | 2018-06-28 14:34 | CONSULT ---
[facility] Psychiatric Consult - Data Date of interview: 06/28/18 Admission source: [facility] Identifying data: Readmission to [facility] for this 47 y/o male seeking detox treatment on for heroin,cocaine,cannabis,xanax and alcohol dependence.Patient is ,a father of three,domiciled and reportedly employed. Substance Abuse History: Confirmed by patient in this interview.Smoking history : Current every day smoker. Have you smoked in the past 12 months: Yes. Aproximately how many cigarettes per day: 10. Cigars Per Day: 0. Hx Chewing Tobacco Use: No. Initiated information on smoking cessation: Yes. 'Breaking Loose' booklet given: 06/27/18. - Substance & Tx. History. Hx Alcohol Use: Yes. Hx Substance Use: Yes. Substance Use Type: Alcohol, Cocaine, Heroin, Marijuana, Tranquilizers. Hx Substance Use Treatment: Yes ([facility] 4 months ago). - Substances Abused. Alcohol. Route: Oral. Frequency: Daily. Amount used: LIQUOR- 3 PINTS, BEER- 3 (40oz). Age of first use: 15. Date of Last Use: 06/26/18. Heroin. Route: Injection. Frequency: Daily. Amount used: 15 bags. Age of first use: 19. Date of Last Use: 06/27/18. Alprazolam (Xanax). Route: Oral. Frequency: Daily. Amount used: 4mg. Age of first use: 19. Date of Last Use: 06/27/18 Medical History: Remote history of withdrawal-related seizures.Patient, otherwise, endorses good general health. Psychiatric History: Patient endorses a history of mutiple psychiatric hospitalizations ([facility] in [place],Pending sale to [facility] in [facility]) for 1996 to 2014.Diagnosed with MDD and medicated, over the years, with citalopram and trazodone (doses not recalled).Mr Austin declares that he has not seen a psychiatrist " for some time ".No recollection of location of past OPD clinics.Patient denies history of suicide attempts. Physical/Sexual Abuse/Trauma History: Patient denies. Additional Comment: Urine Drug Screen Results: THC-Marijuana, FRANCIS-Cocaine, OPI- Opiates, BZO-Benzodiazepines.Noted. Mental Status Exam - Mental Status Exam Alert and Oriented to: Time, Place, Person Cognitive Function: Good Patient Appearance: Well Groomed Mood: Nervous Affect: Normal Range Patient Behavior: Fatigued, Cooperative Speech Pattern: Clear, Appropriate Voice Loudness: Normal Thought Process: Intact, Goal Oriented Thought Disorder: Not Present Hallucinations: Denies Suicidal Ideation: Denies Homicidal Ideation: Denies Insight/Judgement: Poor Sleep: Poorly, Difficulty falling asleep Appetite: Good Muscle strength/Tone: Normal Gait/Station: Normal Psychiatric Findings - Problem List ([place] 1, 2,3) (1) Opioid dependence with withdrawal Current Visit: Yes Status: Acute (2) Sedative, hypnotic or anxiolytic dependence with withdrawal, unspecified Current Visit: Yes Status: Acute (3) Alcohol dependence with uncomplicated withdrawal Current Visit: Yes Status: Acute (4) Marijuana dependence Current Visit: Yes Status: Acute (5) Nicotine dependence Current Visit: Yes Status: Acute Qualifiers: Nicotine product type: cigarettes Substance use status: uncomplicated Qualified Code(s): F17.210 - Nicotine dependence, cigarettes, uncomplicated (6) Substance induced mood disorder Current Visit: Yes Status: Acute (7) Insomnia Current Visit: Yes Status: Acute - Initial Treatment Plan Initial Treatment Plan: Psychoeducation.Sleep hygiene.Detoxification.Medication : trazodone 50 mg po hs.Patient is made aware of the risk of priapism.Agrees to this careplan.Observation.
--- NOTE | 2018-06-28 14:46 | PN ---
S CIWA - CIWA Score Nausea/Vomitin-No Nausea/No Vomiting Muscle Tremors: None Anxiety: 3 Agitation: 3 Paroxysmal Sweats: 3 Orientation: 0-Oriented Tacttile Disturbances: 2-Mild Itch/Numbness/Burn Auditory Disturbances: 0-None Visual Disturbances: 2-Mild Sensitivity Headache: 3-Moderate CIWA-Ar Total Score: 16 BHS COWS - Scale Resting Pulse: 0= [place] 80 or Below Sweatin= Chills/Flushing Restless Observation: 1= Difficult to Sit Still Pupil Size: 0= Normal to Room Light Bone or Joint Aches: 2= Severe Diffuse Aches Runny Nose/ Eye Tearin= Nasal Congestion GI Upset > 30mins: 0= None Tremor Observation of Outstretched Hands: 0= None Yawning Observation: 1= 1-2x During Session Anxiety or Irritability: 2=Irritable/Anxious Goose Flesh Skin: 3=Piloerection COWS Score: 11 S Progress Note (SOAP) Subjective: Interrupted Sleep, Sweating, H/A, Body Aches. Objective: PATIENT A & O X 3, OBSERVED AMBULATING ON UNIT. NO ACUTE DISTRESS. 06/28/18 14:45 Vital Signs Temperature 97.7 F 06/28/18 14:21 Pulse Rate 71 06/28/18 14:21 Respiratory Rate 18 06/28/18 14:21 Blood Pressure 121/85 06/28/18 14:21 O2 Sat by Pulse Oximetry (%) Laboratory Tests 06/27/18 06/28/18 06/28/18 22:55 08:00 08:00 WBC 7.4 RBC 4.49 Hgb 13.9 Hct 42.5 MCV 94.8 MCH 31.0 MCHC 32.8 RDW 13.1 Plt Count 209 D MPV 10.0 Sodium Potassium Chloride Carbon Dioxide Anion Gap BUN Creatinine Creat Clearance w eGFR Random Glucose Calcium Total Bilirubin AST ALT Alkaline Phosphatase Total Protein Albumin Urine Color Yellow Urine Appearance Clear Urine pH 6.0 Ur Specific [place] 1.028 Urine Protein Negative Urine Glucose (UA) Negative Urine Ketones Negative Urine Blood Negative Urine Nitrite Negative Urine Bilirubin Negative Urine Urobilinogen Negative Ur Leukocyte Esterase Negative RPR Titer HIV 1&2 Antibody Screen Negative HIV P24 Antigen Negative 06/28/18 06/28/18 08:00 08:00 WBC RBC Hgb Hct MCV MCH MCHC RDW Plt Count MPV Sodium 143 Potassium 3.5 Chloride 108 H Carbon Dioxide 26 Anion Gap 9 BUN 12 Creatinine 0.8 Creat Clearance w eGFR > 60 Random Glucose 138 H D Calcium 8.5 Total Bilirubin 0.4 AST 22 ALT 30 D Alkaline Phosphatase 74 Total Protein 6.1 L Albumin 3.1 L Urine Color Urine Appearance Urine pH Ur Specific [place] Urine Protein Urine Glucose (UA) Urine Ketones Urine Blood Urine Nitrite Urine Bilirubin Urine Urobilinogen Ur Leukocyte Esterase RPR Titer Nonreactive HIV 1&2 Antibody Screen HIV P24 Antigen LABS NOTED. Assessment: 06/28/18 14:45 WITHDRAWAL SYMPTOMS. Plan: CONTINUE DETOX.
--- NOTE | 2018-06-28 18:50 | EKG ---
Test Reason : Blood Pressure : / mmHG Vent. Rate : 057 BPM Atrial Rate : 057 BPM P-R Int : 120 ms QRS Dur : 094 ms QT Int : 428 ms P-R-T Axes : 072 067 055 degrees QTc Int : 416 ms SINUS BRADYCARDIA POSSIBLE LEFT ATRIAL ENLARGEMENT ST ELEVATION, CONSIDER EARLY REPOLARIZATION BORDERLINE ECG WHEN COMPARED WITH ECG OF 27-JUN-2018 19:37, NO SIGNIFICANT CHANGE WAS FOUND Confirmed by DEBBIE SHULTZ MD ([id number]) on 06/28/2018 6:50:09 PM Referred By: Confirmed By:DEBBIE SHULTZ MD
--- NOTE | 2018-06-28 19:07 | EKG ---
Test Reason : Blood Pressure : / mmHG Vent. Rate : 067 BPM Atrial Rate : 067 BPM P-R Int : 106 ms QRS Dur : 096 ms QT Int : 406 ms P-R-T Axes : 033 061 051 degrees QTc Int : 429 ms SINUS RHYTHM WITH SHORT IN POSSIBLE LATERAL INFARCT , AGE UNDETERMINED ABNORMAL ECG WHEN COMPARED WITH ECG OF 10-OCT-2017 01:12, NO SIGNIFICANT CHANGE WAS FOUND Confirmed by DEBBIE SHULTZ MD ([id number]) on 06/28/2018 7:07:15 PM Referred By: Confirmed By:DEBBIE SHULTZ MD
[2018-06-28] MEDS: traZODone HCL 50 MG TABLET (FP) PO SCH (22:31)
[2018-06-28] MEDS: HYDROCORTISONE 0.5% TOPICAL OINTMENT TUBE TP SCH (22:31)
[2018-06-28] MEDS: THIAMINE HCL 100 MG TABLET (FP) PO SCH (22:31)
[2018-06-29] MEDS: diazePAM 5 MG TABLET PO PRN ×3 (08:41→19:35)
[2018-06-29] MEDS: diazePAM 5 MG TABLET PO SCH ×2 (10:32→22:32)
[2018-06-29] MEDS: METHADONE HCL 5 MG TABLET (FOR DETOX USE ONLY) PO SCH (10:32)
[2018-06-29] MEDS: PRENATAL VITAMINS W/ FOLIC ACID TABLET (FP) PO SCH (10:32)
[2018-06-29] MEDS: NICOTINE 21 MG/24 HOURS TOPICAL PATCH TD SCH (10:33)
[2018-06-29] MEDS: HYDROCORTISONE 0.5% TOPICAL OINTMENT TUBE TP SCH ×2 (10:33→22:32)
[2018-06-29] MEDS ORDERED: cloNIDine HCL 0.1 MG TABLET PO PRN (11:00)
[2018-06-29] MEDS ORDERED: hydrOXYzine PAMOATE 50 MG CAPSULE (FP) PO PRN (11:02)
--- NOTE | 2018-06-29 14:43 | PN ---
S CIWA - CIWA Score Nausea/Vomitin Muscle Tremors: 4-Moderate,w/Arms Extend Anxiety: 4-Mod. Anxious/Guarded Agitation: 4-Moderately Restless Paroxysmal Sweats: 3 Orientation: 0-Oriented Tacttile Disturbances: 0-None Auditory Disturbances: 0-None Visual Disturbances: 0-None Headache: 0-None Present CIWA-Ar Total Score: 17 BHS COWS - Scale Resting Pulse: 1= [place] 81-100 Sweatin= Chills/Flushing Restless Observation: 3= Extraneous Movement Pupil Size: 1= Pupils >than Normal Bone or Joint Aches: 2= Severe Diffuse Aches Runny Nose/ Eye Tearin= Runny Nose/Eyes GI Upset > 30mins: 2= Nausea/Diarrhea Tremor Observation of Outstretched Hands: 1= Tremor [place], Not Seen Yawning Observation: 1= 1-2x During Session Anxiety or Irritability: 2=Irritable/Anxious Goose Flesh Skin: 0=Smooth Skin COWS Score: 16 S Progress Note (SOAP) Subjective: Diarrhea, stomach ache, Objective: 06/29/18 14:42 Last Vital Signs Temp Pulse Resp BP Pulse Ox 98.7 F 84 18 122/66 06/29/18 14:30 06/29/18 14:30 06/29/18 14:30 06/29/18 14:30 Laboratory Tests 06/27/18 06/28/18 06/28/18 22:55 08:00 08:00 WBC 7.4 RBC 4.49 Hgb 13.9 Hct 42.5 MCV 94.8 MCH 31.0 MCHC 32.8 RDW 13.1 Plt Count 209 D MPV 10.0 Sodium Potassium Chloride Carbon Dioxide Anion Gap BUN Creatinine Creat Clearance w eGFR Random Glucose Calcium Total Bilirubin AST ALT Alkaline Phosphatase Total Protein Albumin Urine Color Yellow Urine Appearance Clear Urine pH 6.0 Ur Specific [place] 1.028 Urine Protein Negative Urine Glucose (UA) Negative Urine Ketones Negative Urine Blood Negative Urine Nitrite Negative Urine Bilirubin Negative Urine Urobilinogen Negative Ur Leukocyte Esterase Negative RPR Titer HIV 1&2 Antibody Screen Negative HIV P24 Antigen Negative 06/28/18 06/28/18 08:00 08:00 WBC RBC Hgb Hct MCV MCH MCHC RDW Plt Count MPV Sodium 143 Potassium 3.5 Chloride 108 H Carbon Dioxide 26 Anion Gap 9 BUN 12 Creatinine 0.8 Creat Clearance w eGFR > 60 Random Glucose 138 H D Calcium 8.5 Total Bilirubin 0.4 AST 22 ALT 30 D Alkaline Phosphatase 74 Total Protein 6.1 L Albumin 3.1 L Urine Color Urine Appearance Urine pH Ur Specific [place] Urine Protein Urine Glucose (UA) Urine Ketones Urine Blood Urine Nitrite Urine Bilirubin Urine Urobilinogen Ur Leukocyte Esterase RPR Titer Nonreactive HIV 1&2 Antibody Screen HIV P24 Antigen Labs reviewed Assessment: 06/29/18 14:43 Withdrawal symptoms Plan: Continue detox
[2018-06-29] MEDS: traZODone HCL 50 MG TABLET (FP) PO SCH (22:32)
[2018-06-29] MEDS: THIAMINE HCL 100 MG TABLET (FP) PO SCH (22:32)
[2018-06-30] MEDS: PRENATAL VITAMINS W/ FOLIC ACID TABLET (FP) PO SCH (10:24)
[2018-06-30] MEDS: HYDROCORTISONE 0.5% TOPICAL OINTMENT TUBE TP SCH ×2 (10:24→22:28)
[2018-06-30] MEDS: diazePAM 5 MG TABLET PO SCH ×2 (10:25→22:28)
[2018-06-30] MEDS: METHADONE HCL 5 MG TABLET (FOR DETOX USE ONLY) PO SCH (10:25)
[2018-06-30] MEDS: NICOTINE 21 MG/24 HOURS TOPICAL PATCH TD SCH (10:25)
[2018-06-30] MEDS: diazePAM 5 MG TABLET PO PRN ×2 (12:44→16:51)
--- NOTE | 2018-06-30 14:16 | PN ---
BHS Progress Note (SOAP) Subjective: sleep disturbance Sweats Poor appetite Objective: 06/30/18 14:12 A & O x 3 Not in acute distress Anxious Vital Signs Temperature 97.4 F L 06/30/18 13:55 Pulse Rate 70 06/30/18 13:55 Respiratory Rate 18 06/30/18 13:55 Blood Pressure 113/80 06/30/18 13:55 O2 Sat by Pulse Oximetry (%) Assessment: 06/30/18 14:13 Withdrawn sympton Plan: continue detox
[2018-06-30] MEDS: THIAMINE HCL 100 MG TABLET (FP) PO SCH (22:28)
[2018-06-30] MEDS: traZODone HCL 50 MG TABLET (FP) PO SCH (22:28)
[2018-07-01] MEDS ORDERED: diazePAM 5 MG TABLET PO SCH (10:00)
[2018-07-01] MEDS ORDERED: METHADONE HCL 5 MG TABLET (FOR DETOX USE ONLY) PO ONE (10:00)
[2018-07-01] MEDS ORDERED: METHADONE HCL 10 MG TABLET (FOR DETOX USE ONLY) PO SCH (10:00)
[2018-07-01 10:12] VITALS: BP 116/80; PULSE 69; TEMP 99.8
[2018-07-01] MEDS: NICOTINE 21 MG/24 HOURS TOPICAL PATCH TD SCH (10:31)
[2018-07-01] MEDS: PRENATAL VITAMINS W/ FOLIC ACID TABLET (FP) PO SCH (10:31)
[2018-07-01] MEDS: HYDROCORTISONE 0.5% TOPICAL OINTMENT TUBE TP SCH (10:32)
--- NOTE | 2018-07-01 11:31 | PN ---
BHS Progress Note (SOAP) Subjective: DETOX PROCEEDED WELL. PT REFERRED TO [facility] FOR AFTERCARE. Objective: 07/01/18 11:31 Vital Signs 07/01/18 07/01/18 06:16 10:11 Temperature 97.5 F L 99.8 F H Pulse Rate 53 L 69 Respiratory 18 18 Rate Blood Pressure 116/69 116/80 Laboratory Tests 06/27/18 06/28/18 06/28/18 22:55 08:00 08:00 WBC 7.4 RBC 4.49 Hgb 13.9 Hct 42.5 MCV 94.8 MCH 31.0 MCHC 32.8 RDW 13.1 Plt Count 209 D MPV 10.0 Sodium Potassium Chloride Carbon Dioxide Anion Gap BUN Creatinine Creat Clearance w eGFR Random Glucose Calcium Total Bilirubin AST ALT Alkaline Phosphatase Total Protein Albumin Urine Color Yellow Urine Appearance Clear Urine pH 6.0 Ur Specific [place] 1.028 Urine Protein Negative Urine Glucose (UA) Negative Urine Ketones Negative Urine Blood Negative Urine Nitrite Negative Urine Bilirubin Negative Urine Urobilinogen Negative Ur Leukocyte Esterase Negative RPR Titer HIV 1&2 Antibody Screen Negative HIV P24 Antigen Negative 06/28/18 06/28/18 08:00 08:00 WBC RBC Hgb Hct MCV MCH MCHC RDW Plt Count MPV Sodium 143 Potassium 3.5 Chloride 108 H Carbon Dioxide 26 Anion Gap 9 BUN 12 Creatinine 0.8 Creat Clearance w eGFR > 60 Random Glucose 138 H D Calcium 8.5 Total Bilirubin 0.4 AST 22 ALT 30 D Alkaline Phosphatase 74 Total Protein 6.1 L Albumin 3.1 L Urine Color Urine Appearance Urine pH Ur Specific [place] Urine Protein Urine Glucose (UA) Urine Ketones Urine Blood Urine Nitrite Urine Bilirubin Urine Urobilinogen Ur Leukocyte Esterase RPR Titer Nonreactive HIV 1&2 Antibody Screen HIV P24 Antigen Assessment: 07/01/18 11:31 MEDICALLY STABLE Plan: D/C TO [facility] TODAY
--- NOTE | 2018-07-01 11:33 | DS ---
[facility] Detox Discharge Summary Admission Date: 06/27/18 Discharge Date: 07/01/18 - History Present History: Opioid Dependence Additional Comments: DETOX COMPLETED. ALERT O X 3. NAD. Pertinent Past History: PLEASE SEE DX BELOW - Physical Exam Results Vital Signs: Vital Signs Temperature 99.8 F H 07/01/18 10:11 Pulse Rate 69 07/01/18 10:11 Respiratory Rate 18 07/01/18 10:11 Blood Pressure 116/80 07/01/18 10:11 O2 Sat by Pulse Oximetry (%) Pertinent Admission Physical Exam Findings: WITHDRAWAL SX Laboratory Tests 06/27/18 06/28/18 06/28/18 22:55 08:00 08:00 WBC 7.4 RBC 4.49 Hgb 13.9 Hct 42.5 MCV 94.8 MCH 31.0 MCHC 32.8 RDW 13.1 Plt Count 209 D MPV 10.0 Sodium Potassium Chloride Carbon Dioxide Anion Gap BUN Creatinine Creat Clearance w eGFR Random Glucose Calcium Total Bilirubin AST ALT Alkaline Phosphatase Total Protein Albumin Urine Color Yellow Urine Appearance Clear Urine pH 6.0 Ur Specific [place] 1.028 Urine Protein Negative Urine Glucose (UA) Negative Urine Ketones Negative Urine Blood Negative Urine Nitrite Negative Urine Bilirubin Negative Urine Urobilinogen Negative Ur Leukocyte Esterase Negative RPR Titer HIV 1&2 Antibody Screen Negative HIV P24 Antigen Negative 06/28/18 06/28/18 08:00 08:00 WBC RBC Hgb Hct MCV MCH MCHC RDW Plt Count MPV Sodium 143 Potassium 3.5 Chloride 108 H Carbon Dioxide 26 Anion Gap 9 BUN 12 Creatinine 0.8 Creat Clearance w eGFR > 60 Random Glucose 138 H D Calcium 8.5 Total Bilirubin 0.4 AST 22 ALT 30 D Alkaline Phosphatase 74 Total Protein 6.1 L Albumin 3.1 L Urine Color Urine Appearance Urine pH Ur Specific [place] Urine Protein Urine Glucose (UA) Urine Ketones Urine Blood Urine Nitrite Urine Bilirubin Urine Urobilinogen Ur Leukocyte Esterase RPR Titer Nonreactive HIV 1&2 Antibody Screen HIV P24 Antigen - Treatment Hospital Course: Detox Protocol Followed, Detoxed Safely, Responded well, Discharged Condition Good, Rehab Referral Accepted Patient has Accepted a Rehab Referral to: [facility] - Medication Discharge Medications: Ambulatory Orders traZODone HCL [Trazodone HCl] 50 mg PO HS 06/27/18 - Diagnosis (1) Alcohol dependence with uncomplicated withdrawal Status: Acute (2) Insomnia Status: Acute Qualifiers: Insomnia type: unspecified Qualified Code(s): G47.00 - Insomnia, unspecified (3) Opioid dependence with withdrawal Status: Acute (4) Sedative, hypnotic or anxiolytic dependence with withdrawal, unspecified Status: Acute (5) Substance induced mood disorder Status: Acute (6) Alcohol related seizure Status: Chronic (7) Marijuana dependence Status: Acute (8) Nicotine dependence Status: Acute Qualifiers: Nicotine product type: cigarettes Substance use status: in withdrawal Qualified Code(s): F17.213 - Nicotine dependence, cigarettes, with withdrawal - AMA Did Patient Leave Against Medical Advice: No
[2018-07-02] MEDS ORDERED: METHADONE HCL 5 MG TABLET (FOR DETOX USE ONLY) PO SCH (06:00)
== END 2018-07-01 11:26 | disposition home or self-care (01) | DRG 773 ==
LOC: YASAS 15:39 → Y3N 17:34
PROVIDERS: ADMIT Surgery; ATTEND Surgery
PROC: HZ2ZZZZ Detoxification Services for Substance Abuse Treatment (ICD-10-PCS; principal; 2018-06-27)
DX: F11.23 Opioid dependence with withdrawal (principal); F10.230 Alcohol dependence with withdrawal, uncomplicated; F13.230 Sedative, hypnotic or anxiolytic dependence with withdrawal, uncomplicated; F12.20 Cannabis dependence, uncomplicated; F17.213 Nicotine dependence, cigarettes, with withdrawal; F19.24 Other psychoactive substance dependence with psychoactive substance-induced mood disorder; F32.9 Major depressive disorder, single episode, unspecified; G47.00 Insomnia, unspecified; Z86.69 Personal history of other diseases of the nervous system and sense organs
CPT/HCPCS: 36415; 80053; 81003; 85027; 86593; 87389; 93005; 93010

== ENCOUNTER 2018-09-03 14:17 | Inpatient (IN) | payer OTHER ==
[2018-09-03 15:58] VITALS: BMI 26.1
--- NOTE | 2018-09-03 16:53 | HP ---
COWS - Scale Resting Pulse: 1= [place] 81-100 Sweatin= Chills/Flushing Restless Observation: 1= Difficult to Sit Still Pupil Size: 1= Pupils >than Normal Bone or Joint Aches: 1= Mild Discomfort Runny Nose/ Eye Tearin= Runny Nose/Eyes GI Upset > 30mins: 0= None Tremor Observation: 2= Slight Tremor Visible Yawning Observation: 2= >3x During Session Anxiety or Irritability: 2=Irritable/Anxious Goose Flesh Skin: 0=Smooth Skin COWS Score: 13 CIWA Score - CIWA Score Nausea/Vomitin Muscle Tremors: 2 Anxiety: 3 Agitation: 2 Paroxysmal Sweats: 2 Orientation: 0-Oriented Tacttile Disturbances: 1-Very Mild Itch/Numbness Auditory Disturbances: 0-None Visual Disturbances: 0-None Headache: 0-None Present CIWA-Ar Total Score: 12 Admission ROS S - HPI Chief Complaint: opioid and xanax withdrawal symptoms Allergies/Adverse Reactions: Allergies Allergy/AdvReac Type Severity Reaction Status Date / Time No Known Allergies Allergy Verified 09/03/18 15:29 History of Present Illness: 48 yo male with hx of nicotine heroin (IV), cocaine, and marijuana dependence is here seeking detox, this is one of multiple admissions. As per patient last detox was 3- 4 weeks ago left AMA and does not recall the name of the facility, reports soon after relapse. Reports taking methadone from the "streets" two days ago to not feel sick. Denies psychiatric or medical hx at this time. Denies suicidal / homicidal ideation. Denies hx of seizures, overdose or blackouts. Longest period of sobriety two years. Exam Limitations: No Limitations - Ebola screening Have you traveled outside of the country in the last 21 days: No Have you had contact with anyone from an Ebola affected area: No Have you been sick,other than usual withdrawal symptoms: No Do you have a fever: No - Review of Systems Constitutional: Chills, Loss of Appetite, Changes in sleep, Unintentional Wgt. Loss EENT: reports: Nose Congestion Respiratory: reports: No Symptoms reported Cardiac: reports: No Symptoms Reported GI: reports: Poor Fluid Intake, Abdominal cramping : reports: No Symptoms Reported Musculoskeletal: reports: No Symptoms Reported Integumentary: reports: No Symptoms Reported Neuro: reports: No Symptoms reported, See HPI Endocrine: reports: Increased Thirst Hematology: reports: No Symptoms Reported Psychiatric: reports: Orientated x3, Anxious Other Systems: Reviewed and Negative Patient History - Patient Medical History Hx Anemia: No Hx Asthma: No Hx Chronic Obstructive Pulmonary Disease (COPD): No Hx Cancer: No Hx Cardiac Disorders: No Hx Congestive Heart Failure: No Hx Hypertension: No Hx Hypercholesterolemia: No Hx Pacemaker: No HX Cerebrovascular Accident: No Hx Seizures: No Hx Dementia: No Hx Diabetes: No Hx Gastrointestinal Disorders: No Hx Liver Disease: No Hx Genitourinary Disorders: No Hx Sexually Transmitted Disorders: No Hx Renal Disease (ESRD): No Hx Thyroid Disease: No Hx Human Immunodeficiency Virus (HIV): No (Last test June Neg results ) Hx Hepatitis C: No Hx Depression: No Hx Suicide Attempt: No Hx Bipolar Disorder: No Hx Schizophrenia: No - Patient Surgical History Past Surgical History: No Hx Neurologic Surgery: No Hx Cataract Extraction: No Hx Cardiac Surgery: No Hx Lung Surgery: No Hx Breast Surgery: No Hx Breast Biopsy: No Hx Abdominal Surgery: No Hx Appendectomy: No Hx Cholecystectomy: No Hx Genitourinary Surgery: No Hx Section: No Hx Orthopedic Surgery: No Anesthesia Reaction: No - PPD History Previous Implant?: Yes Documented Results: Negative w/proof Implanted On Prior R Admission?: Yes Date: 10/12/17 Results: 0 mm PPD to be Administered?: No - Smoking Cessation Smoking history: Current every day smoker Have you smoked in the past 12 months: Yes Aproximately how many cigarettes per day: 10 Cigars Per Day: 0 Hx Chewing Tobacco Use: No Initiated information on smoking cessation: Yes 'Breaking Loose' booklet given: 09/03/18 - Substance & Tx. History Hx Alcohol Use: No Hx Substance Use: Yes Substance Use Type: Cocaine, Heroin, Marijuana, Tranquilizers Hx Substance Use Treatment: Yes (see HPI ) - Substances Abused Heroin Route: Injection Frequency: Daily Amount used: 15-20 bags Age of first use: 19 Date of Last Use: 09/03/18 Xanax Route: Oral Frequency: Daily Amount used: 10 mg. Age of first use: 27 Date of Last Use: 09/01/18 Cocaine Route: Injection Frequency: Daily Amount used: $10 - 20 Age of first use: 19 Date of Last Use: 09/02/18 Marijuana/Hashish Route: Smoking Frequency: 3-6 times per week Amount used: 1 blunt Age of first use: 16 Date of Last Use: 09/01/18 Family Disease History - Family Disease History Family History: Denies Admission Physical Exam [facility] - Vital Signs Vital Signs: Vital Signs - 24 hr 09/03/18 15:16 Temperature 97.5 F L Pulse Rate 82 Respiratory 18 Rate Blood Pressure 141/76 - Physical General Appearance: Yes: Disheveled, Mild Distress, Anxious HEENTM: Yes: EOMI, Hearing grossly Normal, Normal ENT Inspection, Normocephalic , Normal Voice, ISHAAN, Pharynx Normal, Tm's normal, Rhinorrhea Respiratory: Yes: Chest Non-Tender, Lungs Clear, Normal Breath Sounds, No Respiratory Distress, No Accessory Muscle Use Neck: Yes: Within Normal Limits Breast: Yes: Breast Exam Deferred Cardiology: Yes: Regular Rhythm, Regular Rate Abdominal: Yes: Normal Bowel Sounds, Non Tender, Flat, Soft Genitourinary: Yes: Within Normal Limits Back: Yes: Normal Inspection Musculoskeletal: Yes: full range of Motion, Gait Steady, Pelvis Stable Extremities: Yes: Normal Capillary Refill, Normal Inspection, Normal Range of Motion, Non-Tender Neurological: Yes: senior policy analyst II-XII NML intact, Fully Oriented, Alert, Motor Strength 5/5, Depressed Affect Integumentary: Yes: Normal Color, Warm, Moist, Track Simons (rigth forearm, no infection) Lymphatic: Yes: Within Normal Limits - Diagnostic (1) Cocaine dependence Current Visit: Yes Status: Acute Qualifiers: Substance use status: uncomplicated Qualified Code(s): F14.20 - Cocaine dependence, uncomplicated (2) Marijuana dependence Current Visit: No Status: Acute (3) Nicotine dependence Current Visit: Yes Status: Acute Qualifiers: Nicotine product type: cigarettes Substance use status: in withdrawal Qualified Code(s): F17.213 - Nicotine dependence, cigarettes, with withdrawal (4) Opioid dependence with withdrawal Current Visit: Yes Status: Acute (5) Sedative, hypnotic or anxiolytic dependence with withdrawal, unspecified Current Visit: Yes Status: Acute (6) IVDU (intravenous drug user) Current Visit: Yes Status: Acute Cleared for Admission [facility] - Detox or Rehab [facility] Level of Care: Medically Managed Detox Regimen/Protocol: Methadone/Valium [facility] Breath Alcohol Content Breath Alcohol Content: 0 Urine Drug Screen - Results Drug Screen Negative: No Urine Drug Screen Results: THC-Marijuana, FRANCIS-Cocaine, OPI-Opiates, BAR- Barbiturates, BZO-Benzodiazepines, MTD-Methadone, FEN-Fentanyl
[2018-09-03] MEDS ORDERED: MENTHOL/PHENOL 1 EACH UD MM PRN (16:58)
[2018-09-03] MEDS ORDERED: guaiFENesin/D-METHORPHAN HB 10 ML UNIT-DOSE CUPS PO PRN (16:58)
[2018-09-03] MEDS ORDERED: MAGNESIUM CITRATE 300 ML BOTTLE PO PRN (16:58)
[2018-09-03] MEDS ORDERED: MAG HYDROX/AL HYDROX/SIMETH 30 ML UNIT-DOSE CUP PO PRN (16:58)
[2018-09-03] MEDS ORDERED: ACETAMINOPHEN 325 MG TABLET (FP) PO PRN (16:58)
[2018-09-03] MEDS ORDERED: NICOTINE POLACRILEX 2 MG GUM BC PRN (16:58)
[2018-09-03] MEDS ORDERED: MAGNESIUM HYDROX 2400MG/30ML ORAL SUSPENSION 30 ML CUP PO PRN (16:58)
[2018-09-03] MEDS ORDERED: LOPERAMIDE HCL 2 MG CAPSULE PO PRN (16:58)
[2018-09-03] MEDS ORDERED: P-EPHED 60MG/TRIPROLIDI 2.5MG TABLET PO PRN (16:58)
[2018-09-03] MEDS ORDERED: METHADONE HCL 10 MG TABLET (FOR DETOX USE ONLY) PO ONE ×2 (17:45→23:00)
[2018-09-03] MEDS ORDERED: diazePAM 5 MG TABLET PO ONE (17:45)
[2018-09-03] MEDS ORDERED: MELATONIN 5 MG TABLETS PO PRN (22:00)
[2018-09-03] MEDS: THIAMINE HCL 100 MG TABLET (FP) PO SCH (22:01)
[2018-09-03] MEDS: IBUPROFEN 400 MG TABLET (FP) PO PRN (22:01)
[2018-09-03] MEDS: diazePAM 5 MG TABLET PO SCH (22:01)
[2018-09-04 00:45] LABS: URINE APPEARANCE CLEAR; URINE BILIRUBIN NEGATIVE (<2.0 mg/dL); URINE COLOR YELLOW; URINE GLUCOSE (UA) NEGATIVE (NEGATIVE); URINE KETONE NEGATIVE (NEGATIVE); URINE LEUK ESTERASE NEGATIVE (NEGATIVE); URINE NITRITE NEGATIVE (NEGATIVE); URINE PROTEIN NEGATIVE (NEGATIVE); URINE UROBILINOGEN NEGATIVE mg/dL (0.2-1.0)
[2018-09-04] MEDS: diazePAM 5 MG TABLET PO SCH ×3 (06:04→22:08)
[2018-09-04] MEDS ORDERED: METHADONE HCL 10 MG TABLET (FOR DETOX USE ONLY) PO SCH (10:00)
[2018-09-04] MEDS: PRENATAL VITAMINS W/ FOLIC ACID TABLET (FP) PO SCH (10:12)
[2018-09-04] MEDS: NICOTINE 14 MG/24 HOURS TOPICAL PATCH TD SCH (10:13)
[2018-09-04] MEDS: diazePAM 5 MG TABLET PO PRN ×3 (10:15→20:35)
[2018-09-04 10:26] LABS: HEMATOCRIT 41.2 % (35.4-49); HEMOGLOBIN 13.2 GM/dL (11.7-16.9); MCH 30.4 pg (25.7-33.7); MCHC 32.1 g/dl (32.0-35.9); MEAN CELL VOLUME 94.6 fl (80-96); MEAN PLT VOLUME 9.5 fl (7.5-11.1); PLATELET COUNT 176 K/MM3 (134-434); RBC 4.35 M/mm3 (4.00-5.60); RDW 13.9 % (11.9-15.9); WHITE BLOOD COUNT 5.1 K/mm3 (4.0-10.0)
[2018-09-04 10:34] LABS: ALK PHOS 75 U/L (45-117); ANION GAP 7 MMOL/L (8-16); BILIRUBIN,TOTAL 0.4 mg/dL (0.2-1); BLOOD UREA NITROGEN 18 mg/dL (7-18); CALCIUM 8.1 mg/dL (8.5-10.1); CHLORIDE 104 mmol/L (98-107); CO2 28 mmol/L (21-32); CREATININE 0.8 mg/dL (0.55-1.3); GLUCOSE,RANDOM 99 mg/dL (74-106); POTASSIUM 3.5 mmol/L (3.5-5.1); SGOT/AST 25 U/L (15-37); SGPT/ALT 30 U/L (13-61); SODIUM 139 mmol/L (136-145); TOT PROT 5.7 g/dl (6.4-8.2)
[2018-09-04] MEDS ORDERED: FLU VACCINE QUAD 60 MCG/0.5 ML (MDV 18-19) IM ONE (12:00)
[2018-09-04] MEDS: IBUPROFEN 400 MG TABLET (FP) PO PRN (12:44)
[2018-09-04] MEDS: HYDROCORTISONE 1% TOPICAL CREAM 30 GM TUBE TP PRN (12:49)
--- NOTE | 2018-09-04 12:52 | PN ---
[facility] CIWA - CIWA Score Nausea/Vomitin-Mild Nausea/No Vomiting Muscle Tremors: 3 Anxiety: 3 Agitation: 2 Paroxysmal Sweats: 1-Minimal Palms Moist Orientation: 1-Uncertain about Date Tacttile Disturbances: 1-Very Mild Itch/Numbness Auditory Disturbances: 0-None Visual Disturbances: 0-None Headache: 0-None Present CIWA-Ar Total Score: 12 S COWS - Scale Resting Pulse: 0= [place] 80 or Below Sweatin= Chills/Flushing Restless Observation: 1= Difficult to Sit Still Pupil Size: 0= Normal to Room Light Bone or Joint Aches: 2= Severe Diffuse Aches Runny Nose/ Eye Tearin= Nasal Congestion GI Upset > 30mins: 2= Nausea/Diarrhea Tremor Observation of Outstretched Hands: 1= Tremor [place], Not Seen Yawning Observation: 1= 1-2x During Session Anxiety or Irritability: 1=Feels Anxious/Irritable Goose Flesh Skin: 0=Smooth Skin COWS Score: 10 [facility] Progress Note (SOAP) Subjective: sweat tremore anxiety body ache muscle cramping Objective: 09/04/18 12:53 Vital Signs Temperature 98.1 F 09/04/18 10:05 Pulse Rate 65 09/04/18 10:05 Respiratory Rate 19 09/04/18 10:05 Blood Pressure 104/53 L 09/04/18 10:05 O2 Sat by Pulse Oximetry (%) Laboratory Last Values WBC 5.1 K/mm3 (4.0-10.0) 09/04/18 07:00 RBC 4.35 M/mm3 (4.00-5.60) 09/04/18 07:00 Hgb 13.2 GM/dL (11.7-16.9) 09/04/18 07:00 Hct 41.2 % (35.4-49) 09/04/18 07:00 MCV 94.6 fl (80-96) 09/04/18 07:00 MCH 30.4 pg (25.7-33.7) 09/04/18 07:00 MCHC 32.1 g/dl (32.0-35.9) 09/04/18 07:00 RDW 13.9 % (11.9-15.9) 09/04/18 07:00 Plt Count 176 K/MM3 (134-434) 09/04/18 07:00 MPV 9.5 fl (7.5-11.1) 09/04/18 07:00 Sodium 139 mmol/L (136-145) 09/04/18 07:00 Potassium 3.5 mmol/L (3.5-5.1) 09/04/18 07:00 Chloride 104 mmol/L (98-107) 09/04/18 07:00 Carbon Dioxide 28 mmol/L (21-32) 09/04/18 07:00 Anion Gap 7 MMOL/L (8-16) L 09/04/18 07:00 BUN 18 mg/dL (7-18) 09/04/18 07:00 Creatinine 0.8 mg/dL (0.55-1.3) 09/04/18 07:00 Creat Clearance w eGFR > 60 (>60) 09/04/18 07:00 Random Glucose 99 mg/dL (74-106) 09/04/18 07:00 Calcium 8.1 mg/dL (8.5-10.1) L 09/04/18 07:00 Total Bilirubin 0.4 mg/dL (0.2-1) 09/04/18 07:00 AST 25 U/L (15-37) 09/04/18 07:00 ALT 30 U/L (13-61) 09/04/18 07:00 Alkaline Phosphatase 75 U/L (45-117) 09/04/18 07:00 Total Protein 5.7 g/dl (6.4-8.2) L 09/04/18 07:00 Albumin 3.0 g/dl (3.4-5.0) L 09/04/18 07:00 Urine Color Yellow 09/03/18 23:11 Urine Appearance Clear 09/03/18 23:11 Urine pH 5.0 (5.0-8.0) 09/03/18 23:11 Ur Specific [place] 1.028 (1.010-1.035) 09/03/18 23:11 Urine Protein Negative (NEGATIVE) 09/03/18 23:11 Urine Glucose (UA) Negative (NEGATIVE) 09/03/18 23:11 Urine Ketones Negative (NEGATIVE) 09/03/18 23:11 Urine Blood Negative (NEGATIVE) 09/03/18 23:11 Urine Nitrite Negative (NEGATIVE) 09/03/18 23:11 Urine Bilirubin Negative (<2.0 mg/dL) 09/03/18 23:11 Urine Urobilinogen Negative mg/dL (0.2-1.0) 09/03/18 23:11 Ur Leukocyte Esterase Negative (NEGATIVE) 09/03/18 23:11 RPR Titer Nonreactive (NONREACTIVE) 09/04/18 07:00 HIV 1&2 Antibody Screen Negative 09/04/18 07:00 HIV P24 Antigen Negative 09/04/18 07:00 lab noted Assessment: 09/04/18 12:54 withdrawal sx Plan: continue detox
--- NOTE | 2018-09-04 14:54 | CONSULT ---
[facility] Psychiatric Consult - Data Date of interview: 09/04/18 Admission source: [facility] Identifying data: This is 48 years old male, single father of three, unemploys, domiciled, with no incoms, with psychiatric hospitalization history, with history of nicotine heroin (IV), cocaine, xanax and marijuana dependence is here seeking detox, reporting withdrawal symptoms, Substance Abuse History: Smoking history: Current every day smoker. Have you smoked in the past 12 months: Yes. Aproximately how many cigarettes per day: 10. Cigars Per Day: 0. Hx Chewing Tobacco Use: No. Initiated information on smoking cessation: Yes. 'Breaking Loose' booklet given: 09/03/18. - Substance & Tx. History. Hx Alcohol Use: No. Hx Substance Use: Yes. Substance Use Type : Cocaine, Heroin, Marijuana, Tranquilizers. Hx Substance Use Treatment: Yes ( see HPI ). - Substances Abused. Heroin. Route: Injection. Frequency: Daily. Amount used: 15-20 bags. Age of first use: 19. Date of Last Use: 09/03. Xanax. Route: Oral. Frequency: Daily. Amount used: 10 mg. Age of first use: 27. Date of Last Use: 09/01/18. Cocaine. Route: Injection. Frequency: Daily. Amount used: $10 - 20. Age of first use: 19. Date of Last Use: 09/02/18. Marijuana/Hashish. Route: Smoking. Frequency: 3-6 times per week. Amount used: 1 blunt. Age of first use: 16. Date of Last Use: 09/01 Medical History: Seizure history Psychiatric History: Patient reports history of depression, reports only psychiatric hospitalization back on 14 years ago after suicidal attempt by cutting his forearm after intrafamily conflict. Patient reports no suicidal history since then. . Motuivated to restart his medications;. Trazodone 50mg po qhs. Celexa 20mg poqd. Gabapentin 300mg pop tid Physical/Sexual Abuse/Trauma History: Denies Additional Comment: Trazodone 50mg po qhs. Celexa 20mg poqd. Gabapentin 300mg pop tid Mental Status Exam - Mental Status Exam Alert and Oriented to: Person Cognitive Function: Fair Patient Appearance: Well Groomed Mood: Apprehensive Affect: Mood Congruent Patient Behavior: Cooperative Speech Pattern: Appropriate Voice Loudness: Normal Thought Process: Goal Oriented Thought Disorder: Being Controlled Hallucinations: Denies Suicidal Ideation: Denies Homicidal Ideation: Denies Insight/Judgement: Fair Sleep: Difficulty falling asleep Appetite: Fair Muscle strength/Tone: Normal Gait/Station: Normal Additional Comments: Trazodone 50mg po qhs. Celexa 20mg poqd. Gabapentin 300mg pop tid Psychiatric Findings - Problem List ([place] 1, 2,3) (1) Cocaine dependence Current Visit: Yes Status: Acute Qualifiers: Substance use status: uncomplicated Qualified Code(s): F14.20 - Cocaine dependence, uncomplicated (2) Nicotine dependence Current Visit: Yes Status: Acute Qualifiers: Nicotine product type: cigarettes Substance use status: in withdrawal Qualified Code(s): F17.213 - Nicotine dependence, cigarettes, with withdrawal (3) Opioid dependence with withdrawal Current Visit: Yes Status: Acute (4) Sedative, hypnotic or anxiolytic dependence with withdrawal, unspecified Current Visit: Yes Status: Acute (5) Alcohol dependence with uncomplicated withdrawal Current Visit: No Status: Acute (6) Marijuana dependence Current Visit: No Status: Acute (7) Substance induced mood disorder Current Visit: No Status: Acute (8) Alcohol related seizure Current Visit: No Status: Chronic - Initial Treatment Plan Initial Treatment Plan: Trazodone 50mg po qhs. Celexa 20mg poqd. Gabapentin 300mg pop tid
--- NOTE | 2018-09-04 15:11 | EKG ---
Test Reason : Blood Pressure : / mmHG Vent. Rate : 070 BPM Atrial Rate : 070 BPM P-R Int : 120 ms QRS Dur : 092 ms QT Int : 394 ms P-R-T Axes : 069 066 056 degrees QTc Int : 425 ms NORMAL SINUS RHYTHM NORMAL ECG WHEN COMPARED WITH ECG OF 28-JUN-2018 11:09, NO SIGNIFICANT CHANGE WAS FOUND Confirmed by BRENNA HERRERA MD ([id number]) on 09/04/2018 3:10:29 PM Referred By: Confirmed By:BRENNA HERRERA MD
[2018-09-04] MEDS: CITALOPRAM HYDROBROMIDE 20 MG TABLET (FP) PO SCH (15:37)
[2018-09-04] MEDS: traZODone HCL 50 MG TABLET (FP) PO SCH (22:08)
[2018-09-04] MEDS: THIAMINE HCL 100 MG TABLET (FP) PO SCH (22:08)
[2018-09-04] MEDS: GABAPENTIN 300 MG CAPSULE (FP) PO SCH (22:08)
[2018-09-05] MEDS: GABAPENTIN 300 MG CAPSULE (FP) PO SCH ×3 (07:00→22:23)
[2018-09-05] MEDS ORDERED: TRIMETHOBENZAMIDE HCL 300 MG CAPSULE PO PRN (09:51)
--- NOTE | 2018-09-05 09:51 | PN ---
[facility] CIWA - CIWA Score Nausea/Vomitin-No Nausea/No Vomiting Muscle Tremors: 4-Moderate,w/Arms Extend Anxiety: 3 Agitation: 3 Paroxysmal Sweats: 3 Orientation: 0-Oriented Tacttile Disturbances: 0-None Auditory Disturbances: 0-None Visual Disturbances: 0-None Headache: 0-None Present CIWA-Ar Total Score: 13 [facility] COWS - Scale Resting Pulse: 0= [place] 80 or Below Sweatin=Flushed/Facial Moisture Restless Observation: 1= Difficult to Sit Still Pupil Size: 0= Normal to Room Light Bone or Joint Aches: 2= Severe Diffuse Aches Runny Nose/ Eye Tearin= Runny Nose/Eyes GI Upset > 30mins: 1= Stomach Cramp Tremor Observation of Outstretched Hands: 2= Slight Tremor Visible Yawning Observation: 2= >3x During Session Anxiety or Irritability: 2=Irritable/Anxious Goose Flesh Skin: 0=Smooth Skin COWS Score: 14 S Progress Note (SOAP) Subjective: sweats shakes interrupted sleep agitation body aches nausea Objective: 09/05/18 09:50 Vital Signs Temperature 98.1 F 09/05/18 09:21 Pulse Rate 59 L 09/05/18 09:21 Respiratory Rate 18 09/05/18 09:21 Blood Pressure 113/58 L 09/05/18 09:21 O2 Sat by Pulse Oximetry (%) Laboratory Tests 09/03/18 09/04/18 09/04/18 23:11 07:00 07:00 WBC 5.1 RBC 4.35 Hgb 13.2 Hct 41.2 MCV 94.6 MCH 30.4 MCHC 32.1 RDW 13.9 Plt Count 176 MPV 9.5 Sodium Potassium Chloride Carbon Dioxide Anion Gap BUN Creatinine Creat Clearance w eGFR Random Glucose Calcium Total Bilirubin AST ALT Alkaline Phosphatase Total Protein Albumin Urine Color Yellow Urine Appearance Clear Urine pH 5.0 Ur Specific [place] 1.028 Urine Protein Negative Urine Glucose (UA) Negative Urine Ketones Negative Urine Blood Negative Urine Nitrite Negative Urine Bilirubin Negative Urine Urobilinogen Negative Ur Leukocyte Esterase Negative RPR Titer HIV 1&2 Antibody Screen Negative HIV P24 Antigen Negative 09/04/18 09/04/18 07:00 07:00 WBC RBC Hgb Hct MCV MCH MCHC RDW Plt Count MPV Sodium 139 Potassium 3.5 Chloride 104 Carbon Dioxide 28 Anion Gap 7 L BUN 18 Creatinine 0.8 Creat Clearance w eGFR > 60 Random Glucose 99 Calcium 8.1 L Total Bilirubin 0.4 AST 25 ALT 30 Alkaline Phosphatase 75 Total Protein 5.7 L Albumin 3.0 L Urine Color Urine Appearance Urine pH Ur Specific [place] Urine Protein Urine Glucose (UA) Urine Ketones Urine Blood Urine Nitrite Urine Bilirubin Urine Urobilinogen Ur Leukocyte Esterase RPR Titer Nonreactive HIV 1&2 Antibody Screen HIV P24 Antigen aaox3 ambulating no acute distress Assessment: 09/05/18 09:50 withdrawal sx Plan: continue detox increase fluids tigan po prn
[2018-09-05] MEDS: diazePAM 5 MG TABLET PO SCH ×2 (10:25→22:23)
[2018-09-05] MEDS: PRENATAL VITAMINS W/ FOLIC ACID TABLET (FP) PO SCH (10:25)
[2018-09-05] MEDS: CITALOPRAM HYDROBROMIDE 20 MG TABLET (FP) PO SCH (10:25)
[2018-09-05] MEDS: NICOTINE 14 MG/24 HOURS TOPICAL PATCH TD SCH (10:25)
[2018-09-05] MEDS: METHADONE HCL 5 MG TABLET (FOR DETOX USE ONLY) PO SCH (10:25)
[2018-09-05] MEDS: diazePAM 5 MG TABLET PO PRN ×2 (14:18→20:33)
[2018-09-05] MEDS: IBUPROFEN 400 MG TABLET (FP) PO PRN ×2 (14:18→22:24)
[2018-09-05] MEDS: THIAMINE HCL 100 MG TABLET (FP) PO SCH (22:22)
[2018-09-05] MEDS: traZODone HCL 50 MG TABLET (FP) PO SCH (22:23)
[2018-09-06] MEDS: GABAPENTIN 300 MG CAPSULE (FP) PO SCH ×3 (06:04→22:15)
[2018-09-06] MEDS: diazePAM 5 MG TABLET PO PRN ×2 (06:07→12:36)
[2018-09-06] MEDS: METHADONE HCL 5 MG TABLET (FOR DETOX USE ONLY) PO SCH (10:27)
[2018-09-06] MEDS: CITALOPRAM HYDROBROMIDE 20 MG TABLET (FP) PO SCH (10:27)
[2018-09-06] MEDS: NICOTINE 14 MG/24 HOURS TOPICAL PATCH TD SCH (10:27)
[2018-09-06] MEDS: PRENATAL VITAMINS W/ FOLIC ACID TABLET (FP) PO SCH (10:27)
[2018-09-06] MEDS: diazePAM 5 MG TABLET PO SCH ×2 (10:28→22:15)
--- NOTE | 2018-09-06 12:06 | PN ---
[facility] Progress Note Note: PATIENT CONTINUES WITH DETOX REGIMEN. C/O TOOTHACHE. Vital Signs Temperature 97.3 F L 09/06/18 09:41 Pulse Rate 68 09/06/18 09:41 Respiratory Rate 8 L 09/06/18 09:41 Blood Pressure 125/85 09/06/18 09:41 O2 Sat by Pulse Oximetry (%) Laboratory Tests 09/03/18 09/04/18 09/04/18 23:11 07:00 07:00 WBC 5.1 RBC 4.35 Hgb 13.2 Hct 41.2 MCV 94.6 MCH 30.4 MCHC 32.1 RDW 13.9 Plt Count 176 MPV 9.5 Sodium Potassium Chloride Carbon Dioxide Anion Gap BUN Creatinine Creat Clearance w eGFR Random Glucose Calcium Total Bilirubin AST ALT Alkaline Phosphatase Total Protein Albumin Urine Color Yellow Urine Appearance Clear Urine pH 5.0 Ur Specific [place] 1.028 Urine Protein Negative Urine Glucose (UA) Negative Urine Ketones Negative Urine Blood Negative Urine Nitrite Negative Urine Bilirubin Negative Urine Urobilinogen Negative Ur Leukocyte Esterase Negative RPR Titer HIV 1&2 Antibody Screen Negative HIV P24 Antigen Negative 09/04/18 09/04/18 07:00 07:00 WBC RBC Hgb Hct MCV MCH MCHC RDW Plt Count MPV Sodium 139 Potassium 3.5 Chloride 104 Carbon Dioxide 28 Anion Gap 7 L BUN 18 Creatinine 0.8 Creat Clearance w eGFR > 60 Random Glucose 99 Calcium 8.1 L Total Bilirubin 0.4 AST 25 ALT 30 Alkaline Phosphatase 75 Total Protein 5.7 L Albumin 3.0 L Urine Color Urine Appearance Urine pH Ur Specific [place] Urine Protein Urine Glucose (UA) Urine Ketones Urine Blood Urine Nitrite Urine Bilirubin Urine Urobilinogen Ur Leukocyte Esterase RPR Titer Nonreactive HIV 1&2 Antibody Screen HIV P24 Antigen PE: SKIN WARM AND DRY AMB AD RAQUEL ALERT AND ORIENTED X 3 ORAL MUCOSA PINK, MOIST, + TOOTH DECAY A/P WITHDRAWAL SYNDROME TOOTHACHE CONTINUE DETOX ADD ORAGEL ENCOURAGE ORAL FLUIDS CONTINUE TO MONITOR
[2018-09-06] MEDS ORDERED: BENZOCAINE 20 % GEL TUBE MM PRN (12:07)
[2018-09-06] MEDS: IBUPROFEN 400 MG TABLET (FP) PO PRN (12:34)
[2018-09-06] MEDS: traZODone HCL 50 MG TABLET (FP) PO SCH (22:15)
[2018-09-06] MEDS: THIAMINE HCL 100 MG TABLET (FP) PO SCH (22:16)
[2018-09-07] MEDS: GABAPENTIN 300 MG CAPSULE (FP) PO SCH ×3 (05:28→22:25)
[2018-09-07] MEDS ORDERED: diazePAM 5 MG TABLET PO SCH (10:00)
[2018-09-07] MEDS ORDERED: METHADONE HCL 10 MG TABLET (FOR DETOX USE ONLY) PO SCH (10:00)
[2018-09-07] MEDS: PRENATAL VITAMINS W/ FOLIC ACID TABLET (FP) PO SCH (10:34)
[2018-09-07] MEDS: CITALOPRAM HYDROBROMIDE 20 MG TABLET (FP) PO SCH (10:34)
[2018-09-07] MEDS: NICOTINE 14 MG/24 HOURS TOPICAL PATCH TD SCH (10:35)
[2018-09-07] MEDS: HYDROCORTISONE 1% TOPICAL CREAM 30 GM TUBE TP PRN (10:36)
--- NOTE | 2018-09-07 11:07 | PN ---
[facility] Progress Note (SOAP) Subjective: feeling better no tremor no body aches less sweat no gi distress Objective: 09/07/18 11:06 Vital Signs Temperature 97.7 F 09/07/18 09:32 Pulse Rate 61 09/07/18 09:32 Respiratory Rate 16 09/07/18 09:32 Blood Pressure 128/82 09/07/18 09:32 O2 Sat by Pulse Oximetry (%) Laboratory Last Values WBC 5.1 K/mm3 (4.0-10.0) 09/04/18 07:00 RBC 4.35 M/mm3 (4.00-5.60) 09/04/18 07:00 Hgb 13.2 GM/dL (11.7-16.9) 09/04/18 07:00 Hct 41.2 % (35.4-49) 09/04/18 07:00 MCV 94.6 fl (80-96) 09/04/18 07:00 MCH 30.4 pg (25.7-33.7) 09/04/18 07:00 MCHC 32.1 g/dl (32.0-35.9) 09/04/18 07:00 RDW 13.9 % (11.9-15.9) 09/04/18 07:00 Plt Count 176 K/MM3 (134-434) 09/04/18 07:00 MPV 9.5 fl (7.5-11.1) 09/04/18 07:00 Sodium 139 mmol/L (136-145) 09/04/18 07:00 Potassium 3.5 mmol/L (3.5-5.1) 09/04/18 07:00 Chloride 104 mmol/L (98-107) 09/04/18 07:00 Carbon Dioxide 28 mmol/L (21-32) 09/04/18 07:00 Anion Gap 7 MMOL/L (8-16) L 09/04/18 07:00 BUN 18 mg/dL (7-18) 09/04/18 07:00 Creatinine 0.8 mg/dL (0.55-1.3) 09/04/18 07:00 Creat Clearance w eGFR > 60 (>60) 09/04/18 07:00 Random Glucose 99 mg/dL (74-106) 09/04/18 07:00 Calcium 8.1 mg/dL (8.5-10.1) L 09/04/18 07:00 Total Bilirubin 0.4 mg/dL (0.2-1) 09/04/18 07:00 AST 25 U/L (15-37) 09/04/18 07:00 ALT 30 U/L (13-61) 09/04/18 07:00 Alkaline Phosphatase 75 U/L (45-117) 09/04/18 07:00 Total Protein 5.7 g/dl (6.4-8.2) L 09/04/18 07:00 Albumin 3.0 g/dl (3.4-5.0) L 09/04/18 07:00 Urine Color Yellow 09/03/18 23:11 Urine Appearance Clear 09/03/18 23:11 Urine pH 5.0 (5.0-8.0) 09/03/18 23:11 Ur Specific [place] 1.028 (1.010-1.035) 09/03/18 23:11 Urine Protein Negative (NEGATIVE) 09/03/18 23:11 Urine Glucose (UA) Negative (NEGATIVE) 09/03/18 23:11 Urine Ketones Negative (NEGATIVE) 09/03/18 23:11 Urine Blood Negative (NEGATIVE) 09/03/18 23:11 Urine Nitrite Negative (NEGATIVE) 09/03/18 23:11 Urine Bilirubin Negative (<2.0 mg/dL) 09/03/18 23:11 Urine Urobilinogen Negative mg/dL (0.2-1.0) 09/03/18 23:11 Ur Leukocyte Esterase Negative (NEGATIVE) 09/03/18 23:11 RPR Titer Nonreactive (NONREACTIVE) 09/04/18 07:00 HIV 1&2 Antibody Screen Negative 09/04/18 07:00 HIV P24 Antigen Negative 09/04/18 07:00 lab noted Assessment: 09/07/18 11:07 mild withdrawal sx Plan: medically supervised detox
[2018-09-07] MEDS ORDERED: hydrOXYzine PAMOATE 50 MG CAPSULE (FP) PO ONE (14:38)
[2018-09-07] MEDS: traZODone HCL 50 MG TABLET (FP) PO SCH (22:25)
[2018-09-07] MEDS: THIAMINE HCL 100 MG TABLET (FP) PO SCH (22:25)
[2018-09-08] MEDS ORDERED: METHADONE HCL 5 MG TABLET (FOR DETOX USE ONLY) PO SCH (06:00)
[2018-09-08] MEDS: GABAPENTIN 300 MG CAPSULE (FP) PO SCH (06:18)
[2018-09-08 06:53] VITALS: BP 125/74; PULSE 55; TEMP 96.4
[2018-09-08] MEDS: PRENATAL VITAMINS W/ FOLIC ACID TABLET (FP) PO SCH (09:07)
[2018-09-08] MEDS: CITALOPRAM HYDROBROMIDE 20 MG TABLET (FP) PO SCH (09:07)
[2018-09-08] MEDS: NICOTINE 14 MG/24 HOURS TOPICAL PATCH TD SCH (09:08)
--- NOTE | 2018-09-08 12:36 | DS ---
[facility] Detox Discharge Summary Admission Date: 09/03/18 Discharge Date: 09/08/18 - History Present History: Opioid Dependence, Sedative Dependence Additional Comments: 48 years old male admitted on 09/03/18 for opiate and benzo withdrawal sx completed detox regimen tolerated well denies opiate and benzo withdrawal sx alert oriented x 3 no acute distress aftercare revelation patient wants to go home for some clothe - Physical Exam Results Vital Signs: Vital Signs Temperature 96.4 F L 09/08/18 06:52 Pulse Rate 55 L 09/08/18 06:52 Respiratory Rate 18 09/08/18 06:52 Blood Pressure 125/74 09/08/18 06:52 O2 Sat by Pulse Oximetry (%) Pertinent Admission Physical Exam Findings: benzo and opiate withdrawal sx Vital Signs Temperature 96.4 F L 09/08/18 06:52 Pulse Rate 55 L 09/08/18 06:52 Respiratory Rate 18 09/08/18 06:52 Blood Pressure 125/74 09/08/18 06:52 O2 Sat by Pulse Oximetry (%) Laboratory Last Values WBC 5.1 K/mm3 (4.0-10.0) 09/04/18 07:00 RBC 4.35 M/mm3 (4.00-5.60) 09/04/18 07:00 Hgb 13.2 GM/dL (11.7-16.9) 09/04/18 07:00 Hct 41.2 % (35.4-49) 09/04/18 07:00 MCV 94.6 fl (80-96) 09/04/18 07:00 MCH 30.4 pg (25.7-33.7) 09/04/18 07:00 MCHC 32.1 g/dl (32.0-35.9) 09/04/18 07:00 RDW 13.9 % (11.9-15.9) 09/04/18 07:00 Plt Count 176 K/MM3 (134-434) 09/04/18 07:00 MPV 9.5 fl (7.5-11.1) 09/04/18 07:00 Sodium 139 mmol/L (136-145) 09/04/18 07:00 Potassium 3.5 mmol/L (3.5-5.1) 09/04/18 07:00 Chloride 104 mmol/L (98-107) 09/04/18 07:00 Carbon Dioxide 28 mmol/L (21-32) 09/04/18 07:00 Anion Gap 7 MMOL/L (8-16) L 09/04/18 07:00 BUN 18 mg/dL (7-18) 09/04/18 07:00 Creatinine 0.8 mg/dL (0.55-1.3) 09/04/18 07:00 Creat Clearance w eGFR > 60 (>60) 09/04/18 07:00 Random Glucose 99 mg/dL (74-106) 09/04/18 07:00 Calcium 8.1 mg/dL (8.5-10.1) L 09/04/18 07:00 Total Bilirubin 0.4 mg/dL (0.2-1) 09/04/18 07:00 AST 25 U/L (15-37) 09/04/18 07:00 ALT 30 U/L (13-61) 09/04/18 07:00 Alkaline Phosphatase 75 U/L (45-117) 09/04/18 07:00 Total Protein 5.7 g/dl (6.4-8.2) L 09/04/18 07:00 Albumin 3.0 g/dl (3.4-5.0) L 09/04/18 07:00 Urine Color Yellow 09/03/18 23:11 Urine Appearance Clear 09/03/18 23:11 Urine pH 5.0 (5.0-8.0) 09/03/18 23:11 Ur Specific [place] 1.028 (1.010-1.035) 09/03/18 23:11 Urine Protein Negative (NEGATIVE) 09/03/18 23:11 Urine Glucose (UA) Negative (NEGATIVE) 09/03/18 23:11 Urine Ketones Negative (NEGATIVE) 09/03/18 23:11 Urine Blood Negative (NEGATIVE) 09/03/18 23:11 Urine Nitrite Negative (NEGATIVE) 09/03/18 23:11 Urine Bilirubin Negative (<2.0 mg/dL) 09/03/18 23:11 Urine Urobilinogen Negative mg/dL (0.2-1.0) 09/03/18 23:11 Ur Leukocyte Esterase Negative (NEGATIVE) 09/03/18 23:11 RPR Titer Nonreactive (NONREACTIVE) 09/04/18 07:00 HIV 1&2 Antibody Screen Negative 09/04/18 07:00 HIV P24 Antigen Negative 09/04/18 07:00 lab noted - Treatment Hospital Course: Detox Protocol Followed, Detoxed Safely, Responded well, Discharged Condition Good, Rehab Referral Accepted Patient has Accepted a Rehab Referral to: [facility] - Medication Discharge Medications: Ambulatory Orders Citalopram Hydrobromide [Celexa -] 20 mg PO DAILY #30 tablet 09/04/18 Gabapentin [Neurontin -] 300 mg PO TID #90 capsule 09/04/18 traZODone HCL [Desyrel -] 50 mg PO HS #30 tablet 09/04/18 - Diagnosis (1) Alcohol dependence with uncomplicated withdrawal Status: Acute (2) Nicotine dependence Status: Acute Qualifiers: Nicotine product type: cigarettes Substance use status: in withdrawal Qualified Code(s): F17.213 - Nicotine dependence, cigarettes, with withdrawal (3) Opioid dependence with withdrawal Status: Acute (4) Sedative, hypnotic or anxiolytic dependence with withdrawal, unspecified Status: Acute (5) Substance induced mood disorder Status: Suspected - AMA Did Patient Leave Against Medical Advice: No
== END 2018-09-08 09:07 | disposition home or self-care (01) | DRG 773 ==
LOC: YASAS 14:17 → Y3N 16:19 → Y6N 17:04
PROC: HZ2ZZZZ Detoxification Services for Substance Abuse Treatment (ICD-10-PCS; principal; 2018-09-03)
DX: F11.23 Opioid dependence with withdrawal (principal); F10.230 Alcohol dependence with withdrawal, uncomplicated; F13.230 Sedative, hypnotic or anxiolytic dependence with withdrawal, uncomplicated; F14.20 Cocaine dependence, uncomplicated; F12.20 Cannabis dependence, uncomplicated; F17.213 Nicotine dependence, cigarettes, with withdrawal; F19.24 Other psychoactive substance dependence with psychoactive substance-induced mood disorder; K08.89 Other specified disorders of teeth and supporting structures; Z59.0 Homelessness
CPT/HCPCS: 36415; 80053; 81003; 85027; 86593; 87389; 93005; 93010

== ENCOUNTER 2018-11-19 15:04 | Inpatient (IN) | payer OTHER ==
[2018-11-19 18:05] VITALS: BMI 27.1
--- NOTE | 2018-11-19 20:30 | HP ---
COWS - Scale Resting Pulse: 1= [place] 81-100 Sweatin=Flushed/Facial Moisture Restless Observation: 1= Difficult to Sit Still Pupil Size: 1= Pupils >than Normal Bone or Joint Aches: 2= Severe Diffuse Aches Runny Nose/ Eye Tearin= Nasal Congestion GI Upset > 30mins: 2= Nausea/Diarrhea Tremor Observation: 2= Slight Tremor Visible Yawning Observation: 0= None Anxiety or Irritability: 1=Feels Anxious/Irritable Goose Flesh Skin: 0=Smooth Skin COWS Score: 13 CIWA Score - Admission Criteria OAS Guidelines: Admission for Medically Managed Detox: Requires at least one of the followin. CIWA greater than 12 2. Seizures within the past 24 hours 3. Delirium tremens within the past 24 hours 4. Hallucinations within the past 24 hours 5. Acute intervention needed for co occurring medical disorder 6. Acute intervention needed for co occurring psychiatric disorder 7. Severe withdrawal that cannot be handled at a lower level of care (continued vomiting, continued diarrhea, abnormal vital signs) requiring intravenous medication and/or fluids 8. Admission ROS [facility] Chief Complaint: Here with opiate withdrawal. Allergies/Adverse Reactions: Allergies Allergy/AdvReac Type Severity Reaction Status Date / Time No Known Allergies Allergy Verified 11/19/18 19:06 History of Present Illness: Here for heroin and opiate detox. States I feel really ill. Alcohol use began at age 15. Heroin use began at age 19. IVDU. States does not share needles or works. Nicotine use began at age 17. Cocaine use began at age 15. Hx; Overdose 6 months ago. Denies seizures or blackouts. Denies significant PMH. Denies depression or thoughts of harming self or others. Patient Name: Lauri Avila Date: 1970 Address: [address] [place] [id number] Sex: Male Rx Written Rx Dispensed Drug Quantity Days Supply Prescriber Name 11/07/2018 11/07/2018 methadone hcl 10 mg tablet 11 4 Alicia Abernathy NP 08/20/2018 08/20/2018 methadone hcl 10 mg tablet 11 6 Deja Painting Patient Name: Lauri Avila Date: 1970 Address: [place] [address] Sex: Male Rx Written Rx Dispensed Drug Quantity Days Supply Prescriber Name 10/16/2018 10/16/2018 suboxone 12 mg-3 mg sl film 15 15 Josh Ray MD 10/10/2018 10/12/2018 suboxone 8 mg-2 mg sl film 10 10 Josh Ray MD 10/06/2018 10/06/2018 suboxone 8 mg-2 mg sl film 7 7 Josh Ray MD Patient Name: Lauri Avila Date: 1970 Address: [address] [place] [address] Sex: Male Rx Written Rx Dispensed Drug Quantity Days Supply Prescriber Name 07/22/2018 07/22/2018 suboxone 2 mg-0.5 mg sl film 15 15 Stan Rubi MD Patient Name: Lauri Avila Date: 1970 Address: [address] [place] [address] Sex: Male Rx Written Rx Dispensed Drug Quantity Days Supply Prescriber Name 07/21/2018 07/21/2018 zubsolv 0.7-0.18 mg tablet sl 21 21 LaksLauri MD 07/11/2018 07/11/2018 zubsolv 0.7-0.18 mg tablet sl 2 2 LakLauri abbasi MD Patient Name: Lauri Avila Date: 1970 Address: [address] [place] [address] Sex: Male Rx Written Rx Dispensed Drug Quantity Days Supply Prescriber Name 06/04/2018 06/04/2018 buprenorphine-naloxone 8-2 mg sl film 90 30 Colantonio, Alistair 04/23/2018 04/28/2018 suboxone 8 mg-2 mg sl film 90 30 Colantonio, Alistair 04/10/2018 04/10/2018 suboxone 8 mg-2 mg sl film 60 20 MD Duque Mario Exam Limitations: No Limitations - Ebola screening Have you traveled outside of the country in the last 21 days: No Have you had contact with anyone from an Ebola affected area: No Have you been sick,other than usual withdrawal symptoms: No - Review of Systems Constitutional: Chills, Diaphoresis, Changes in sleep (Difficulty falling and staying asleep) EENT: reports: Blurred Vision (Needs glasses), Hearing Loss (Slight hearing loss in (L) ear r/t hx boxing), Nose Congestion, Dental Problems Respiratory: reports: No Symptoms reported Cardiac: reports: No Symptoms Reported GI: reports: Diarrhea, Nausea : reports: No Symptoms Reported Musculoskeletal: reports: Back Pain (r/t withdrawal), Joint Pain (r/t withdrawal ) Integumentary: reports: Lesions (Scrape from belt (L) lower abd in skin fold) Neuro: reports: Headache (r/t withdrawal), Tremors Endocrine: reports: Increased Thirst Hematology: reports: No Symptoms Reported Psychiatric: reports: Judgement Intact, Orientated x3, Agitated, Anxious Patient History - Patient Medical History Hx Anemia: No Hx Asthma: No Hx Chronic Obstructive Pulmonary Disease (COPD): No Hx Cancer: No Hx Cardiac Disorders: No Hx Congestive Heart Failure: No Hx Hypertension: No Hx Hypercholesterolemia: No Hx Pacemaker: No HX Cerebrovascular Accident: No Hx Seizures: No Hx Dementia: No Hx Diabetes: No Hx Gastrointestinal Disorders: No Hx Liver Disease: No Hx Genitourinary Disorders: No Hx Sexually Transmitted Disorders: No Hx Renal Disease (ESRD): No Hx Thyroid Disease: No Hx Human Immunodeficiency Virus (HIV): No (Last test June Neg results ) Hx Hepatitis C: No Hx Depression: Yes Hx Suicide Attempt: No Hx Bipolar Disorder: No Hx Schizophrenia: No - Patient Surgical History Past Surgical History: No Hx Neurologic Surgery: No Hx Cataract Extraction: No Hx Cardiac Surgery: No Hx Lung Surgery: No Hx Breast Surgery: No Hx Breast Biopsy: No Hx Abdominal Surgery: No Hx Appendectomy: No Hx Cholecystectomy: No Hx Genitourinary Surgery: No Hx Section: No Hx Orthopedic Surgery: No Anesthesia Reaction: No - PPD History Previous Implant?: Yes Documented Results: Negative w/proof Date: 10/12/17 Results: 0 mm PPD to be Administered?: Yes - Smoking Cessation Smoking history: Current every day smoker Have you smoked in the past 12 months: Yes Aproximately how many cigarettes per day: 10 Cigars Per Day: 0 Hx Chewing Tobacco Use: No Initiated information on smoking cessation: Yes 'Breaking Loose' booklet given: 11/19/18 - Substance & Tx. History Hx Alcohol Use: Yes Hx Substance Use: Yes Substance Use Type: Alcohol, Cocaine, Heroin Hx Substance Use Treatment: Yes (detox, rehab) - Substances Abused Alcohol Route: Oral Frequency: 1-2 times per week Amount used: LIQUOR- 3 PINTS, BEER- 1 SIX PACK Age of first use: 15 Date of Last Use: 11/19/18 Heroin Route: Injection Frequency: Daily Amount used: 20 BAGS Age of first use: 19 Date of Last Use: 11/19/18 Admission Physical Exam [facility] - Vital Signs Vital Signs: Vital Signs - 24 hr 11/19/18 18:02 Temperature 97.8 F Pulse Rate 85 Respiratory 18 Rate Blood Pressure 115/69 - Physical General Appearance: Yes: Nourished, Mild Distress, Tremorous, Sweating ( Increased facial moisture), Anxious HEENTM: Yes: EOMI, Hearing grossly Normal, Normocephalic, ISHAAN (Pupils = 4 mm), Pharynx Normal, Rhinorrhea, Other (Tearing) Respiratory: Yes: Lungs Clear, Normal Breath Sounds, No Respiratory Distress Neck: Yes: No masses,lesions,Nodules, Supple Breast: Yes: Breast Exam Deferred Cardiology: Yes: Regular Rhythm, Regular Rate, S1, S2 Abdominal: Yes: Non Tender, Flat, Soft, Increased Bowel Sounds Genitourinary: Yes: Within Normal Limits Back: Yes: Normal Inspection Musculoskeletal: Yes: full range of Motion, Gait Steady Extremities: Yes: Normal Capillary Refill, Normal Range of Motion, Tremors Neurological: Yes: e/m engineer II-XII NML intact, Fully Oriented, Alert, Motor Strength 5/5 Integumentary: Yes: Normal Color, Dry, Warm, Track Simons (Old and new tracj simons on arms. No increased warmth or induration.), Other (3 cm scratch (L) lower abd at skin fold w/ crusted tissue. No drainage or increased warmth or induration.) Lymphatic: Yes: Within Normal Limits - Diagnostic (1) Alcohol abuse Current Visit: Yes Status: Chronic (2) Cocaine dependence Current Visit: Yes Status: Chronic Qualifiers: Substance use status: uncomplicated Qualified Code(s): F14.20 - Cocaine dependence, uncomplicated (3) IVDU (intravenous drug user) Current Visit: Yes Status: Chronic (4) Nicotine dependence Current Visit: Yes Status: Chronic Qualifiers: Nicotine product type: cigarettes Substance use status: in withdrawal Qualified Code(s): F17.213 - Nicotine dependence, cigarettes, with withdrawal (5) Opioid dependence with withdrawal Current Visit: Yes Status: Acute (6) Scratch Current Visit: Yes Status: Chronic Cleared for Admission [facility] - Detox or Rehab [facility] Level of Care: Medically Managed Detox Regimen/Protocol: Methadone BHS Breath Alcohol Content Breath Alcohol Content: 0 Urine Drug Screen - Results Drug Screen Negative: No Urine Drug Screen Results: FRANCIS-Cocaine, OPI-Opiates, BZO-Benzodiazepines, MTD- Methadone, FEN-Fentanyl, BUP-Suboxone
[2018-11-19] MEDS ORDERED: MENTHOL/PHENOL 1 EACH UD MM PRN (22:02)
[2018-11-19] MEDS ORDERED: MAGNESIUM CITRATE 300 ML BOTTLE PO PRN (22:02)
[2018-11-19] MEDS ORDERED: ACETAMINOPHEN 325 MG TABLET (FP) PO PRN (22:02)
[2018-11-19] MEDS ORDERED: METHADONE HCL 10 MG TABLET (FOR DETOX USE ONLY) PO ONE ×2 (22:02→23:00)
[2018-11-19] MEDS ORDERED: IBUPROFEN 400 MG TABLET (FP) PO PRN (22:02)
[2018-11-19] MEDS ORDERED: P-EPHED 60MG/TRIPROLIDI 2.5MG TABLET PO PRN (22:02)
[2018-11-19] MEDS ORDERED: MAGNESIUM HYDROX 2400MG/30ML ORAL SUSPENSION 30 ML CUP PO PRN (22:02)
[2018-11-19] MEDS ORDERED: MAG HYDROX/AL HYDROX/SIMETH 30 ML UNIT-DOSE CUP PO PRN (22:02)
[2018-11-19] MEDS ORDERED: NICOTINE POLACRILEX 2 MG GUM BC PRN (22:02)
[2018-11-19] MEDS ORDERED: LOPERAMIDE HCL 2 MG CAPSULE PO PRN (22:02)
[2018-11-19] MEDS: BACITRACIN 0.9 GM PACKET TP SCH (23:44)
[2018-11-19] MEDS: diazePAM 5 MG TABLET PO PRN (23:44)
[2018-11-20 01:56] LABS: URINE APPEARANCE CLEAR; URINE BILIRUBIN NEGATIVE (<2.0 mg/dL); URINE COLOR YELLOW; URINE GLUCOSE (UA) NEGATIVE (NEGATIVE); URINE KETONE NEGATIVE (NEGATIVE); URINE LEUK ESTERASE NEGATIVE (NEGATIVE); URINE NITRITE NEGATIVE (NEGATIVE); URINE PROTEIN NEGATIVE (NEGATIVE); URINE UROBILINOGEN NEGATIVE mg/dL (0.2-1.0)
--- NOTE | 2018-11-20 07:43 | CONSULT ---
[facility] Psychiatric Consult - Data Date of interview: 11/20/18 Admission source: [facility] Identifying data: This is a 48 years old male, , father of three, homeless, on PA support, with no psychiatric hospitalization history, reports Heroin, Alcohol and Nicotine dependence, reports Alcohol withdrawal symptoms and seeking for detox. Denies suicidal, homicidal history. Substance Abuse History: Smoking history: Current every day smoker. Have you smoked in the past 12 months: Yes. Aproximately how many cigarettes per day: 10. Cigars Per Day: 0. Hx Chewing Tobacco Use: No. Initiated information on smoking cessation: Yes. 'Breaking Loose' booklet given: 11/19/18. - Substance & Tx. History. Hx Alcohol Use: Yes. Hx Substance Use: Yes. Substance Use Type : Alcohol, Cocaine, Heroin. Hx Substance Use Treatment: Yes (detox, rehab). - Substances Abused. Alcohol. Route: Oral. Frequency: 1-2 times per week. Amount used: LIQUOR- 3 PINTS, BEER- 1 SIX PACK. Age of first use: 15. Date of Last Use: 11/19/18. Heroin. Route: Injection. Frequency: Daily. Amount used: 20 BAGS. Age of first use: 19. Date of Last Use: 11/19/18 Medical History: Denies Psychiatric History: Patient reports history of depression and anxiety, denies psychiatric hospitalization history, reports no suicidal, homicidal history, reports inmsomnia and anxiety/depression:-That is why I am drinking". As per patient taking prior to admission: Gabapentin 300mg po tid. Celexa 20mg poqd. Trazodone 50mg po qhs Physical/Sexual Abuse/Trauma History: Denies Additional Comment: Gabapentin 300mg po tid. Celexa 20mg poqd. Trazodone 50mg po qhs Mental Status Exam - Mental Status Exam Alert and Oriented to: Person Cognitive Function: Fair Patient Appearance: Unkempt Mood: Sad Affect: Flat Patient Behavior: Sedated Speech Pattern: Delayed Voice Loudness: Mildly Soft/Quiet Thought Process: Circumstantial, Goal Oriented Thought Disorder: Being Controlled Hallucinations: Denies Suicidal Ideation: Denies Homicidal Ideation: Denies Insight/Judgement: Fair Sleep: Difficulty falling asleep Appetite: Fair Muscle strength/Tone: Mild Hypotonicity Gait/Station: Shuffling Additional Comments: Gabapentin 300mg po tid. Celexa 20mg poqd. Trazodone 50mg po qhs Psychiatric Findings - Problem List ([place] 1, 2,3) (1) Opioid dependence with withdrawal Current Visit: Yes Status: Acute (2) Alcohol abuse Current Visit: Yes Status: Chronic (3) Cocaine dependence Current Visit: Yes Status: Chronic Qualifiers: Substance use status: uncomplicated Qualified Code(s): F14.20 - Cocaine dependence, uncomplicated (4) Marijuana dependence Current Visit: Yes Status: Chronic (5) Nicotine dependence Current Visit: Yes Status: Chronic Qualifiers: Nicotine product type: cigarettes Substance use status: in withdrawal Qualified Code(s): F17.213 - Nicotine dependence, cigarettes, with withdrawal (6) Alcohol dependence with uncomplicated withdrawal Current Visit: No Status: Acute (7) Sedative, hypnotic or anxiolytic dependence with withdrawal, unspecified Current Visit: No Status: Acute (8) Depressed affect Current Visit: No Status: Suspected (9) Substance induced mood disorder Current Visit: No Status: Suspected - Initial Treatment Plan Initial Treatment Plan: Gabapentin 300mg po tid. Celexa 20mg poqd. Trazodone 50mg po qhs
[2018-11-20] MEDS ORDERED: METHADONE HCL 10 MG TABLET (FOR DETOX USE ONLY) PO ONE (10:00)
[2018-11-20 10:04] LABS: HEMATOCRIT 39.6 % (35.4-49); HEMOGLOBIN 13.7 GM/dL (11.7-16.9); MCH 32.8 pg (25.7-33.7); MCHC 34.7 g/dl (32.0-35.9); MEAN CELL VOLUME 94.6 fl (80-96); MEAN PLT VOLUME 10.3 fl (7.5-11.1); PLATELET COUNT 188 K/MM3 (134-434); RBC 4.19 M/mm3 (4.00-5.60); RDW 13.8 % (11.9-15.9); WHITE BLOOD COUNT 7.8 K/mm3 (4.0-10.0)
[2018-11-20 10:26] LABS: ALK PHOS 73 U/L (45-117); ANION GAP 6 MMOL/L (8-16); BILIRUBIN,TOTAL 0.4 mg/dL (0.2-1); BLOOD UREA NITROGEN 15 mg/dL (7-18); CHLORIDE 107 mmol/L (98-107); CO2 28 mmol/L (21-32); CREATININE 0.8 mg/dL (0.55-1.3); GLUCOSE,RANDOM 93 mg/dL (74-106); POTASSIUM 3.7 mmol/L (3.5-5.1); SGOT/AST 16 U/L (15-37); SGPT/ALT 26 U/L (13-61); SODIUM 141 mmol/L (136-145); TOT PROT 5.8 g/dl (6.4-8.2)
[2018-11-20] MEDS: CITALOPRAM HYDROBROMIDE 20 MG TABLET (FP) PO SCH (10:42)
[2018-11-20] MEDS: NICOTINE 21 MG/24 HOURS TOPICAL PATCH TD SCH (10:42)
[2018-11-20] MEDS: BACITRACIN 0.9 GM PACKET TP SCH ×2 (10:42→22:08)
[2018-11-20] MEDS: PRENATAL VITAMINS W/ FOLIC ACID TABLET (FP) PO SCH (10:42)
[2018-11-20] MEDS: diazePAM 5 MG TABLET PO PRN ×3 (10:45→22:09)
--- NOTE | 2018-11-20 11:59 | EKG ---
Test Reason : Blood Pressure : / mmHG Vent. Rate : 082 BPM Atrial Rate : 082 BPM P-R Int : 106 ms QRS Dur : 096 ms QT Int : 380 ms P-R-T Axes : 050 068 052 degrees QTc Int : 443 ms SINUS RHYTHM WITH SHORT ID RSR' OR QR PATTERN IN V1 SUGGESTS RIGHT VENTRICULAR CONDUCTION DELAY BORDERLINE ECG WHEN COMPARED WITH ECG OF 03-SEP-2018 18:00, NO SIGNIFICANT CHANGE WAS FOUND Confirmed by JAVIER PEDERSEN, BRENNA ([id number]) on 11/20/2018 11:59:16 AM Referred By: Confirmed By:BRENNA HERRERA MD
[2018-11-20] MEDS: GABAPENTIN 300 MG CAPSULE (FP) PO SCH ×2 (13:16→22:09)
[2018-11-20] MEDS: HYDROCORTISONE 0.5% TOPICAL CREAM 30 GM TUBE TP PRN (14:21)
--- NOTE | 2018-11-20 16:24 | PN ---
BHS COWS - Scale Resting Pulse: 1= [place] 81-100 Sweatin= Chills/Flushing Restless Observation: 0= Sits Still Pupil Size: 0= Normal to Room Light Bone or Joint Aches: 2= Severe Diffuse Aches Runny Nose/ Eye Tearin= Nasal Congestion GI Upset > 30mins: 0= None Tremor Observation of Outstretched Hands: 0= None Yawning Observation: 1= 1-2x During Session Anxiety or Irritability: 2=Irritable/Anxious Goose Flesh Skin: 3=Piloerection COWS Score: 11 BHS Progress Note (SOAP) Subjective: Sweating, H/A, Body Aches, Nasal Congestion, Interrupted Sleep. Objective: PATIENT A & O X 3, OBSERVED AMBULATING ON UNIT. IN NO ACUTE DISTRESS. 11/20/18 16:23 Vital Signs Temperature 98.1 F 11/20/18 13:57 Pulse Rate 71 11/20/18 13:57 Respiratory Rate 16 11/20/18 13:57 Blood Pressure 125/74 11/20/18 13:57 O2 Sat by Pulse Oximetry (%) Laboratory Tests 11/19/18 11/20/18 11/20/18 22:30 07:00 07:00 WBC 7.8 RBC 4.19 Hgb 13.7 Hct 39.6 MCV 94.6 MCH 32.8 MCHC 34.7 RDW 13.8 Plt Count 188 MPV 10.3 Sodium Potassium Chloride Carbon Dioxide Anion Gap BUN Creatinine Creat Clearance w eGFR Random Glucose Calcium Total Bilirubin AST ALT Alkaline Phosphatase Total Protein Albumin Urine Color Yellow Urine Appearance Clear Urine pH 6.0 Ur Specific [place] 1.026 Urine Protein Negative Urine Glucose (UA) Negative Urine Ketones Negative Urine Blood Negative Urine Nitrite Negative Urine Bilirubin Negative Urine Urobilinogen Negative Ur Leukocyte Esterase Negative HIV 1&2 Antibody Screen Negative HIV P24 Antigen Negative 11/20/18 07:00 WBC RBC Hgb Hct MCV MCH MCHC RDW Plt Count MPV Sodium 141 Potassium 3.7 Chloride 107 Carbon Dioxide 28 Anion Gap 6 L BUN 15 Creatinine 0.8 Creat Clearance w eGFR > 60 Random Glucose 93 Calcium 8.0 L Total Bilirubin 0.4 AST 16 ALT 26 Alkaline Phosphatase 73 Total Protein 5.8 L Albumin 3.0 L Urine Color Urine Appearance Urine pH Ur Specific [place] Urine Protein Urine Glucose (UA) Urine Ketones Urine Blood Urine Nitrite Urine Bilirubin Urine Urobilinogen Ur Leukocyte Esterase HIV 1&2 Antibody Screen HIV P24 Antigen LABS NOTED. RPR RESULT PENDING. 11/20/18 16:24 Assessment: 11/20/18 16:24 WITHDRAWAL SYMPTOMS. Plan: CONTINUE DETOX. INCREASE DAILY PO FLUID INTAKE.
[2018-11-20] MEDS: traZODone HCL 50 MG TABLET (FP) PO SCH (22:08)
[2018-11-20] MEDS: THIAMINE HCL 100 MG TABLET (FP) PO SCH (22:09)
[2018-11-21] MEDS: diazePAM 5 MG TABLET PO PRN ×3 (05:24→18:29)
[2018-11-21] MEDS: GABAPENTIN 300 MG CAPSULE (FP) PO SCH ×3 (05:24→22:06)
[2018-11-21] MEDS ORDERED: METHADONE HCL 5 MG TABLET (FOR DETOX USE ONLY) PO ONE (10:00)
[2018-11-21] MEDS: BACITRACIN 0.9 GM PACKET TP SCH ×2 (10:09→22:05)
[2018-11-21] MEDS: PRENATAL VITAMINS W/ FOLIC ACID TABLET (FP) PO SCH (10:09)
[2018-11-21] MEDS: CITALOPRAM HYDROBROMIDE 20 MG TABLET (FP) PO SCH (10:09)
[2018-11-21] MEDS: NICOTINE 21 MG/24 HOURS TOPICAL PATCH TD SCH (10:10)
--- NOTE | 2018-11-21 12:17 | PN ---
BHS COWS - Scale Resting Pulse: 1= [place] 81-100 Sweatin=Flushed/Facial Moisture Restless Observation: 1= Difficult to Sit Still Pupil Size: 0= Normal to Room Light Bone or Joint Aches: 2= Severe Diffuse Aches Runny Nose/ Eye Tearin= Nasal Congestion GI Upset > 30mins: 0= None Tremor Observation of Outstretched Hands: 2= Slight Tremor Visible Yawning Observation: 1= 1-2x During Session Anxiety or Irritability: 2=Irritable/Anxious Goose Flesh Skin: 0=Smooth Skin COWS Score: 12 BHS Progress Note (SOAP) Subjective: agitation sweats shakes interrupted sleep body aches anxiety Objective: 11/21/18 12:17 Vital Signs Temperature 98.1 F 11/21/18 09:58 Pulse Rate 82 11/21/18 09:58 Respiratory Rate 18 11/21/18 09:58 Blood Pressure 107/69 11/21/18 09:58 O2 Sat by Pulse Oximetry (%) Laboratory Tests 11/19/18 11/20/18 11/20/18 22:30 07:00 07:00 WBC 7.8 RBC 4.19 Hgb 13.7 Hct 39.6 MCV 94.6 MCH 32.8 MCHC 34.7 RDW 13.8 Plt Count 188 MPV 10.3 Sodium Potassium Chloride Carbon Dioxide Anion Gap BUN Creatinine Creat Clearance w eGFR Random Glucose Calcium Total Bilirubin AST ALT Alkaline Phosphatase Total Protein Albumin Urine Color Yellow Urine Appearance Clear Urine pH 6.0 Ur Specific [place] 1.026 Urine Protein Negative Urine Glucose (UA) Negative Urine Ketones Negative Urine Blood Negative Urine Nitrite Negative Urine Bilirubin Negative Urine Urobilinogen Negative Ur Leukocyte Esterase Negative HIV 1&2 Antibody Screen Negative HIV P24 Antigen Negative 11/20/18 07:00 WBC RBC Hgb Hct MCV MCH MCHC RDW Plt Count MPV Sodium 141 Potassium 3.7 Chloride 107 Carbon Dioxide 28 Anion Gap 6 L BUN 15 Creatinine 0.8 Creat Clearance w eGFR > 60 Random Glucose 93 Calcium 8.0 L Total Bilirubin 0.4 AST 16 ALT 26 Alkaline Phosphatase 73 Total Protein 5.8 L Albumin 3.0 L Urine Color Urine Appearance Urine pH Ur Specific [place] Urine Protein Urine Glucose (UA) Urine Ketones Urine Blood Urine Nitrite Urine Bilirubin Urine Urobilinogen Ur Leukocyte Esterase HIV 1&2 Antibody Screen HIV P24 Antigen aaox3 ambulating no acute distress Assessment: 11/21/18 12:17 withdrawal sx Plan: continue detox increase fluids
[2018-11-21] MEDS: traZODone HCL 50 MG TABLET (FP) PO SCH (22:05)
[2018-11-21] MEDS: THIAMINE HCL 100 MG TABLET (FP) PO SCH (22:05)
[2018-11-21] MEDS: MELATONIN 5 MG TABLETS PO PRN (22:06)
[2018-11-22] MEDS: GABAPENTIN 300 MG CAPSULE (FP) PO SCH ×3 (06:08→22:19)
[2018-11-22] MEDS: diazePAM 5 MG TABLET PO PRN ×4 (06:09→18:48)
[2018-11-22] MEDS ORDERED: METHADONE HCL 5 MG TABLET (FOR DETOX USE ONLY) PO ONE (10:00)
[2018-11-22] MEDS: BACITRACIN 0.9 GM PACKET TP SCH ×2 (10:20→22:19)
[2018-11-22] MEDS: CITALOPRAM HYDROBROMIDE 20 MG TABLET (FP) PO SCH (10:20)
[2018-11-22] MEDS: PRENATAL VITAMINS W/ FOLIC ACID TABLET (FP) PO SCH (10:21)
[2018-11-22] MEDS: NICOTINE 21 MG/24 HOURS TOPICAL PATCH TD SCH (10:21)
[2018-11-22] MEDS: HYDROCORTISONE 0.5% TOPICAL CREAM 30 GM TUBE TP PRN (10:22)
--- NOTE | 2018-11-22 12:15 | PN ---
S Progress Note (SOAP) Subjective: Tremors,sweats, diarrhea, joint pain, interrupted sleep Objective: 11/22/18 12:14 Vital Signs - 8 hr 11/22/18 11/22/18 08:23 09:48 Temperature 97.9 F 98.2 F Pulse Rate 64 66 Respiratory 18 18 Rate Blood Pressure 105/77 111/69 Laboratory Last Values WBC 7.8 K/mm3 (4.0-10.0) 11/20/18 07:00 RBC 4.19 M/mm3 (4.00-5.60) 11/20/18 07:00 Hgb 13.7 GM/dL (11.7-16.9) 11/20/18 07:00 Hct 39.6 % (35.4-49) 11/20/18 07:00 MCV 94.6 fl (80-96) 11/20/18 07:00 MCH 32.8 pg (25.7-33.7) 11/20/18 07:00 MCHC 34.7 g/dl (32.0-35.9) 11/20/18 07:00 RDW 13.8 % (11.9-15.9) 11/20/18 07:00 Plt Count 188 K/MM3 (134-434) 11/20/18 07:00 MPV 10.3 fl (7.5-11.1) 11/20/18 07:00 Sodium 141 mmol/L (136-145) 11/20/18 07:00 Potassium 3.7 mmol/L (3.5-5.1) 11/20/18 07:00 Chloride 107 mmol/L (98-107) 11/20/18 07:00 Carbon Dioxide 28 mmol/L (21-32) 11/20/18 07:00 Anion Gap 6 MMOL/L (8-16) L 11/20/18 07:00 BUN 15 mg/dL (7-18) 11/20/18 07:00 Creatinine 0.8 mg/dL (0.55-1.3) 11/20/18 07:00 Creat Clearance w eGFR > 60 (>60) 11/20/18 07:00 Random Glucose 93 mg/dL (74-106) 11/20/18 07:00 Calcium 8.0 mg/dL (8.5-10.1) L 11/20/18 07:00 Total Bilirubin 0.4 mg/dL (0.2-1) 11/20/18 07:00 AST 16 U/L (15-37) 11/20/18 07:00 ALT 26 U/L (13-61) 11/20/18 07:00 Alkaline Phosphatase 73 U/L (45-117) 11/20/18 07:00 Total Protein 5.8 g/dl (6.4-8.2) L 11/20/18 07:00 Albumin 3.0 g/dl (3.4-5.0) L 11/20/18 07:00 Urine Color Yellow 11/19/18 22:30 Urine Appearance Clear 11/19/18 22:30 Urine pH 6.0 (5.0-8.0) 11/19/18 22:30 Ur Specific [place] 1.026 (1.010-1.035) 11/19/18 22:30 Urine Protein Negative (NEGATIVE) 11/19/18 22:30 Urine Glucose (UA) Negative (NEGATIVE) 11/19/18 22:30 Urine Ketones Negative (NEGATIVE) 11/19/18 22:30 Urine Blood Negative (NEGATIVE) 11/19/18 22:30 Urine Nitrite Negative (NEGATIVE) 11/19/18 22:30 Urine Bilirubin Negative (<2.0 mg/dL) 11/19/18 22:30 Urine Urobilinogen Negative mg/dL (0.2-1.0) 11/19/18 22:30 Ur Leukocyte Esterase Negative (NEGATIVE) 11/19/18 22:30 RPR Titer Nonreactive (NONREACTIVE) 11/20/18 07:00 HIV 1&2 Antibody Screen Negative 11/20/18 07:00 HIV P24 Antigen Negative 11/20/18 07:00 Labs noted, no panic values Assessment: 11/22/18 12:15 Withdrawal sx Plan: Continue detox
[2018-11-22] MEDS: traZODone HCL 50 MG TABLET (FP) PO SCH (22:19)
[2018-11-22] MEDS: MELATONIN 5 MG TABLETS PO PRN (22:20)
[2018-11-22] MEDS: THIAMINE HCL 100 MG TABLET (FP) PO SCH (22:20)
[2018-11-23] MEDS: GABAPENTIN 300 MG CAPSULE (FP) PO SCH ×2 (07:16→13:56)
[2018-11-23 09:22] VITALS: PULSE 70
[2018-11-23] MEDS ORDERED: METHADONE HCL 10 MG TABLET (FOR DETOX USE ONLY) PO ONE (10:00)
[2018-11-23] MEDS: BACITRACIN 0.9 GM PACKET TP SCH (10:15)
[2018-11-23] MEDS: PRENATAL VITAMINS W/ FOLIC ACID TABLET (FP) PO SCH (10:15)
[2018-11-23] MEDS: CITALOPRAM HYDROBROMIDE 20 MG TABLET (FP) PO SCH (10:15)
[2018-11-23] MEDS: NICOTINE 21 MG/24 HOURS TOPICAL PATCH TD SCH (10:17)
--- NOTE | 2018-11-23 10:41 | PN ---
[facility] Progress Note (SOAP) Subjective: feeling better less body aches mild tremor little sweating Objective: 11/23/18 12:33 Vital Signs Temperature 97.7 F 11/23/18 09:22 Pulse Rate 70 11/23/18 09:22 Respiratory Rate 18 11/23/18 09:22 Blood Pressure 111/76 11/23/18 09:22 O2 Sat by Pulse Oximetry (%) Laboratory Last Values WBC 7.8 K/mm3 (4.0-10.0) 11/20/18 07:00 RBC 4.19 M/mm3 (4.00-5.60) 11/20/18 07:00 Hgb 13.7 GM/dL (11.7-16.9) 11/20/18 07:00 Hct 39.6 % (35.4-49) 11/20/18 07:00 MCV 94.6 fl (80-96) 11/20/18 07:00 MCH 32.8 pg (25.7-33.7) 11/20/18 07:00 MCHC 34.7 g/dl (32.0-35.9) 11/20/18 07:00 RDW 13.8 % (11.9-15.9) 11/20/18 07:00 Plt Count 188 K/MM3 (134-434) 11/20/18 07:00 MPV 10.3 fl (7.5-11.1) 11/20/18 07:00 Sodium 141 mmol/L (136-145) 11/20/18 07:00 Potassium 3.7 mmol/L (3.5-5.1) 11/20/18 07:00 Chloride 107 mmol/L (98-107) 11/20/18 07:00 Carbon Dioxide 28 mmol/L (21-32) 11/20/18 07:00 Anion Gap 6 MMOL/L (8-16) L 11/20/18 07:00 BUN 15 mg/dL (7-18) 11/20/18 07:00 Creatinine 0.8 mg/dL (0.55-1.3) 11/20/18 07:00 Creat Clearance w eGFR > 60 (>60) 11/20/18 07:00 Random Glucose 93 mg/dL (74-106) 11/20/18 07:00 Calcium 8.0 mg/dL (8.5-10.1) L 11/20/18 07:00 Total Bilirubin 0.4 mg/dL (0.2-1) 11/20/18 07:00 AST 16 U/L (15-37) 11/20/18 07:00 ALT 26 U/L (13-61) 11/20/18 07:00 Alkaline Phosphatase 73 U/L (45-117) 11/20/18 07:00 Total Protein 5.8 g/dl (6.4-8.2) L 11/20/18 07:00 Albumin 3.0 g/dl (3.4-5.0) L 11/20/18 07:00 Urine Color Yellow 11/19/18 22:30 Urine Appearance Clear 11/19/18 22:30 Urine pH 6.0 (5.0-8.0) 11/19/18 22:30 Ur Specific [place] 1.026 (1.010-1.035) 11/19/18 22:30 Urine Protein Negative (NEGATIVE) 11/19/18 22:30 Urine Glucose (UA) Negative (NEGATIVE) 11/19/18 22:30 Urine Ketones Negative (NEGATIVE) 11/19/18 22:30 Urine Blood Negative (NEGATIVE) 11/19/18 22:30 Urine Nitrite Negative (NEGATIVE) 11/19/18 22:30 Urine Bilirubin Negative (<2.0 mg/dL) 11/19/18 22:30 Urine Urobilinogen Negative mg/dL (0.2-1.0) 11/19/18 22:30 Ur Leukocyte Esterase Negative (NEGATIVE) 11/19/18 22:30 RPR Titer Nonreactive (NONREACTIVE) 11/20/18 07:00 HIV 1&2 Antibody Screen Negative 11/20/18 07:00 HIV P24 Antigen Negative 11/20/18 07:00 lab noted Assessment: 11/23/18 12:33 mild withdrawal sx coughing stuffy nose low calcium Plan: continue detox ocean nasal spray oscal supplement robitussin
[2018-11-23] MEDS: HYDROCORTISONE 0.5% TOPICAL CREAM 30 GM TUBE TP PRN (10:42)
[2018-11-23] MEDS ORDERED: guaiFENesin 200 MG/10 ML 10 ML UNIT-DOSE CUPS PO PRN (12:27)
[2018-11-23] MEDS ORDERED: CALCIUM 250MG/VIT-D 125 UNITS 1 COMBO TABLET PO SCH (12:45)
[2018-11-23] MEDS ORDERED: SODIUM CHLORIDE NASAL SPRAY 44 ML BOTTLE NS SCH (14:00)
[2018-11-23 14:24] VITALS: BP 122/68; TEMP 97.9
--- NOTE | 2018-11-23 16:11 | DS ---
[facility] Detox Discharge Summary Admission Date: 11/19/18 Discharge Date: 11/23/18 - History Present History: Opioid Dependence Additional Comments: 48 years old male admitted on 11/19/18 for opiate withdrawal stabilization reported feeling better after lunch and nap patient preferred to leave detox unit today and begin chemical rehab process alert no acute distress no suicidal no homicidal aftercare as per counselor arrangement - Physical Exam Results Vital Signs: Vital Signs Temperature 97.9 F 11/23/18 14:23 Pulse Rate 70 11/23/18 14:23 Respiratory Rate 18 11/23/18 14:23 Blood Pressure 122/68 11/23/18 14:23 O2 Sat by Pulse Oximetry (%) Pertinent Admission Physical Exam Findings: opiate withdrawal sx Laboratory Last Values WBC 7.8 K/mm3 (4.0-10.0) 11/20/18 07:00 RBC 4.19 M/mm3 (4.00-5.60) 11/20/18 07:00 Hgb 13.7 GM/dL (11.7-16.9) 11/20/18 07:00 Hct 39.6 % (35.4-49) 11/20/18 07:00 MCV 94.6 fl (80-96) 11/20/18 07:00 MCH 32.8 pg (25.7-33.7) 11/20/18 07:00 MCHC 34.7 g/dl (32.0-35.9) 11/20/18 07:00 RDW 13.8 % (11.9-15.9) 11/20/18 07:00 Plt Count 188 K/MM3 (134-434) 11/20/18 07:00 MPV 10.3 fl (7.5-11.1) 11/20/18 07:00 Sodium 141 mmol/L (136-145) 11/20/18 07:00 Potassium 3.7 mmol/L (3.5-5.1) 11/20/18 07:00 Chloride 107 mmol/L (98-107) 11/20/18 07:00 Carbon Dioxide 28 mmol/L (21-32) 11/20/18 07:00 Anion Gap 6 MMOL/L (8-16) L 11/20/18 07:00 BUN 15 mg/dL (7-18) 11/20/18 07:00 Creatinine 0.8 mg/dL (0.55-1.3) 11/20/18 07:00 Creat Clearance w eGFR > 60 (>60) 11/20/18 07:00 Random Glucose 93 mg/dL (74-106) 11/20/18 07:00 Calcium 8.0 mg/dL (8.5-10.1) L 11/20/18 07:00 Total Bilirubin 0.4 mg/dL (0.2-1) 11/20/18 07:00 AST 16 U/L (15-37) 11/20/18 07:00 ALT 26 U/L (13-61) 11/20/18 07:00 Alkaline Phosphatase 73 U/L (45-117) 11/20/18 07:00 Total Protein 5.8 g/dl (6.4-8.2) L 11/20/18 07:00 Albumin 3.0 g/dl (3.4-5.0) L 11/20/18 07:00 Urine Color Yellow 11/19/18 22:30 Urine Appearance Clear 11/19/18 22:30 Urine pH 6.0 (5.0-8.0) 11/19/18 22:30 Ur Specific [place] 1.026 (1.010-1.035) 11/19/18 22:30 Urine Protein Negative (NEGATIVE) 11/19/18 22:30 Urine Glucose (UA) Negative (NEGATIVE) 11/19/18 22:30 Urine Ketones Negative (NEGATIVE) 11/19/18 22:30 Urine Blood Negative (NEGATIVE) 11/19/18 22:30 Urine Nitrite Negative (NEGATIVE) 11/19/18 22:30 Urine Bilirubin Negative (<2.0 mg/dL) 11/19/18 22:30 Urine Urobilinogen Negative mg/dL (0.2-1.0) 11/19/18 22:30 Ur Leukocyte Esterase Negative (NEGATIVE) 11/19/18 22:30 RPR Titer Nonreactive (NONREACTIVE) 11/20/18 07:00 HIV 1&2 Antibody Screen Negative 11/20/18 07:00 HIV P24 Antigen Negative 11/20/18 07:00 lab noted - Treatment Hospital Course: Detox Protocol Followed, Detoxed Safely, Responded well, Discharged Condition Good, Rehab Referral Accepted Patient has Accepted a Rehab Referral to: discuss medication assisted treatment program - Medication Discharge Medications: Ambulatory Orders Gabapentin [Neurontin -] 300 mg PO TID #90 capsule 09/04/18 Citalopram Hydrobromide [Celexa -] 20 mg PO DAILY #30 tablet 11/20/18 Gabapentin 300 mg PO TID #90 capsule 11/20/18 traZODone HCL [Desyrel -] 50 mg PO HS #30 tablet 11/20/18 - Diagnosis (1) Opioid dependence with withdrawal Current Visit: Yes Status: Acute (2) Nicotine dependence Current Visit: Yes Status: Acute Qualifiers: Nicotine product type: cigarettes Substance use status: in withdrawal Qualified Code(s): F17.213 - Nicotine dependence, cigarettes, with withdrawal - AMA Did Patient Leave Against Medical Advice: No
[2018-11-24] MEDS ORDERED: METHADONE HCL 5 MG TABLET (FOR DETOX USE ONLY) PO ONE (06:00)
== END 2018-11-23 17:00 | disposition home or self-care (01) | DRG 773 ==
LOC: YASAS 15:04 → Y6N 22:23
PROVIDERS: ADMIT Neuromusculoskeletal Medicine & OMM; ATTEND Neuromusculoskeletal Medicine & OMM
PROC: HZ2ZZZZ Detoxification Services for Substance Abuse Treatment (ICD-10-PCS; principal; 2018-11-19)
DX: F11.23 Opioid dependence with withdrawal (principal); F14.20 Cocaine dependence, uncomplicated; F10.10 Alcohol abuse, uncomplicated; F17.213 Nicotine dependence, cigarettes, with withdrawal; F32.9 Major depressive disorder, single episode, unspecified; F19.24 Other psychoactive substance dependence with psychoactive substance-induced mood disorder; Z59.0 Homelessness
CPT/HCPCS: 36415; 80053; 81003; 85027; 86593; 87389; 93005; 93010